=== PATIENT | female | born 1965 | race Caucasian/White ===

== ENCOUNTER 2017-09-25 20:53 | Inpatient (IN) ==
--- NOTE | 2017-09-25 21:14 | Emergency Department Note ---
Overdose - [facility] Narrative Medical decision making narrative: Patient was hypoxic on room air 88%. She is on 2 L nasal cannula and now has sats in the upper 90s. She has no previous requirement of oxygen. Lung exam shows rhonchi of left lower lobe. Otherwise, regular rhythm, abdomen soft and nontender. She was very drowsy on exam, slow speech, she currently denies suicidal ideation but does admit that she has been telling her family that she wanted to kill herself over the past week. She did intentionally take extra Xanax today in order to sleep. She denies any other injections or drug use today. She is also on gabapentin, Fioricet that could be contributing to her sedated state. We will need to check chest x-ray, basic blood work, tox screen and then will admit for further care and observation overnight, also continue oxygen due to new hypoxia. Patient will need a consult to behavioral health once admitted. [place] slip has been placed on the chart. Consult to has been placed. 22:49 patient's elevated white blood cell count, elevated lactic acid, elevated troponin 0.10. No active chest pain or shortness of breath. EKG shows normal sinus rhythm with no acute ST elevation or depression. There is a T-wave inversion in lead 3 that is new from previous EKG. Patient was given aspirin but did not start any heparin at this time. Urinalysis was negative for UTI, urine tox was positive for benzos and marijuana. Will admit for further care at this time. - Medical Records Medical records reviewed: Yes I reviewed the patient's medical records. - Lab Data Lab results reviewed: Yes I reviewed the patient's lab results. Result diagrams: 09/25/17 21:57 09/25/17 21:57 Lab Results 09/25/17 09/25/17 09/25/17 Range/Units 21:20 21:20 21:57 WBC 20.7 H (4.3-11.1) K/mcL RBC 4.12 (3.82-4.97) M/mcL Hgb 12.7 (11.5-15.4) g/dL Hct 40.7 (35.3-44.9) % MCV 98.8 (83.0-100.0) fL MCH 30.8 (28.0-33.3) pg MCHC 31.2 L (31.6-35.5) g/dL RDW 13.5 (11.5-14.5) % Plt Count 301 (140-400) K/mcL MPV 11.1 (9.4-12.4) fL Immature Gran % 0.7 (0-4) % Seg Neutrophils % 82.9 % Lymphocytes % 9.9 % Monocytes % 6.2 % Eosinophils % 0.1 % Basophils % 0.2 % Neutrophils # 17.1 H (1.6-8.9) K/mcL Lymphocytes # 2.1 (0.6-4.6) K/mcL Monocytes # 1.3 (0.0-1.3) K/mcL Eosinophils # 0.0 (0.0-0.6) K/mcL Basophils # 0.1 (0.0-0.2) K/mcL Sodium (136-145) mEq/L Potassium (3.5-5.1) mEq/L Chloride (98-107) mEq/L Carbon Dioxide (23-29) mEq/L BUN (6-20) mg/dL Creatinine (0.60-1.20) mg/dL Est GFR ( Amer) (> 60) Est GFR (Non-Af Amer) (> 60) BUN/Creatinine Ratio (6-26) Glucose (70-105) mg/dL Calculated Osmolality (280-300) Lactic Acid (0.5-2.2) mmol/L Calcium (8.6-10.3) mg/dL Troponin I (< 0.04) ng/mL B-Natriuretic Peptide (Less than 100) pg/mL Urine Color Yellow (Yellow) Urine Clarity Clear (Clear) Urine pH 5.5 (5.0-8.0) pH Units Ur Specific [place] 1.026 H (1.010-1.025) Urine Protein Trace (Neg-Trace) mg/dL Urine Glucose (UA) 250 H (Normal) mg/dL Urine Ketones Negative (Negative) mg/dL Urine Blood Negative (Negative) Urine Nitrite Negative (Negative) Urine Bilirubin Negative (Negative) Urine Urobilinogen Normal (Normal) mg/dL Ur Leukocyte Esterase Negative (Negative) Urine Microscopic RBC 0-3 (0-3) per hpf Urine Microscopic WBC 0-3 (0-3) per hpf Ur Squamous Epith Cells Many H (None-Few) per lpf Urine Bacteria None Seen (None-Few) per hpf Hyaline Casts None Seen (None-Few) per lpf Salicylates (15.0-30.0) mg/dL Urine Opiates Screen Negative (Swdfcw=019) ng/mL Acetaminophen (10-20) mcg/mL Ur Barbiturates Screen Negative (Haydss=844) ng/mL Ur Phencyclidine Scrn Negative (Cutoff=25) ng/mL Ur Amphetamines Screen Negative (Qgkchj=1022) ng/mL U Benzodiazepines Scrn Positive H (Dqsgrn=828) ng/mL Urine Cocaine Screen Negative (Cutoff= 300) ng/mL U Marijuana (THC) Screen Positive H (Cutoff = 50) ng/mL Ethyl Alcohol (Less than 10) mg/dL 09/25/17 09/25/17 09/25/17 Range/Units 21:57 21:57 21:57 WBC (4.3-11.1) K/mcL RBC (3.82-4.97) M/mcL Hgb (11.5-15.4) g/dL Hct (35.3-44.9) % MCV (83.0-100.0) fL MCH (28.0-33.3) pg MCHC (31.6-35.5) g/dL RDW (11.5-14.5) % Plt Count (140-400) K/mcL MPV (9.4-12.4) fL Immature Gran % (0-4) % Seg Neutrophils % % Lymphocytes % % Monocytes % % Eosinophils % % Basophils % % Neutrophils # (1.6-8.9) K/mcL Lymphocytes # (0.6-4.6) K/mcL Monocytes # (0.0-1.3) K/mcL Eosinophils # (0.0-0.6) K/mcL Basophils # (0.0-0.2) K/mcL Sodium 138 (136-145) mEq/L Potassium 3.9 (3.5-5.1) mEq/L Chloride 104 (98-107) mEq/L Carbon Dioxide 24 (23-29) mEq/L BUN 11 (6-20) mg/dL Creatinine 0.69 (0.60-1.20) mg/dL Est GFR ( Amer) > 60 (> 60) Est GFR (Non-Af Amer) > 60 (> 60) BUN/Creatinine Ratio 16 (6-26) Glucose 90 (70-105) mg/dL Calculated Osmolality 285 (280-300) Lactic Acid 3.0 H (0.5-2.2) mmol/L Calcium 9.2 (8.6-10.3) mg/dL Troponin I 0.10 H* (< 0.04) ng/mL B-Natriuretic Peptide 16 (Less than 100) pg/mL Urine Color (Yellow) Urine Clarity (Clear) Urine pH (5.0-8.0) pH Units Ur Specific [place] (1.010-1.025) Urine Protein (Neg-Trace) mg/dL Urine Glucose (UA) (Normal) mg/dL Urine Ketones (Negative) mg/dL Urine Blood (Negative) Urine Nitrite (Negative) Urine Bilirubin (Negative) Urine Urobilinogen (Normal) mg/dL Ur Leukocyte Esterase (Negative) Urine Microscopic RBC (0-3) per hpf Urine Microscopic WBC (0-3) per hpf Ur Squamous Epith Cells (None-Few) per lpf Urine Bacteria (None-Few) per hpf Hyaline Casts (None-Few) per lpf Salicylates < 2.5 L (15.0-30.0) mg/dL Urine Opiates Screen (Ohahdw=134) ng/mL Acetaminophen < 10 L (10-20) mcg/mL Ur Barbiturates Screen (Uvjtfo=787) ng/mL Ur Phencyclidine Scrn (Cutoff=25) ng/mL Ur Amphetamines Screen (Fvbtef=1288) ng/mL U Benzodiazepines Scrn (Qlrsok=954) ng/mL Urine Cocaine Screen (Cutoff= 300) ng/mL U Marijuana (THC) Screen (Cutoff = 50) ng/mL Ethyl Alcohol < 10 (Less than 10) mg/dL - Radiology Data Radiology results reviewed: Yes I reviewed the patient's radiology results. - EKG Data EKG attestation: Yes I reviewed and interpreted this EKG. EKG results narrative: 09/25/2017 at 21:29. Normal sinus rhythm. Rate 85. CA 157. QRS 11. QTC 427. Normal axis. No acute ST elevation or depression. T wave inversion in lead 3 that is new from previous EKG. Overdose HPI - General Chief Complaint: ED Overdose Stated Complaint: SI/Poss OD/AMS Time Seen by Provider: 09/25/17 21:14 Source: family Mode of arrival: ambulatory Limitations: altered mental status Nursing Notes Reviewed: Yes Vital Signs Reviewed: Yes - History of Present Illness HPI Narrative: Patient is a 52-year-old female with past medical history of anxiety, depression , marijuana abuse, previous drug abuse, chronic low back pain and chronic leg pain. She presents today due to undetermined intent of overdose. She has told family members that for the past week that she wanted to kill herself and no longer wanted to be in this world. Today, the patient says that she took extra Xanax. She said that she just wanted to sleep. She was unclear as to whether or not this was intended to result in her . She currently denies any suicidal ideation or homicidal ideation, visual or auditory hallucinations. She was apparently found by her significant other slumped over in a room home, had vomited coming out of her nose and out of her mouth. The patient was hypoxic on presentation and denies that she has ever been on any oxygen in the past. - Related Data Home Medications Medication Instructions Recorded Confirmed ALPRAZolam [Xanax 0.5 MG Tablet] 0.5 mg PO TID PRN 09/25/17 09/25/17 Atorvastatin Calcium [Lipitor] 20 mg PO HS 09/25/17 09/25/17 Escitalopram [Lexapro] 20 mg PO DAILY 09/25/17 09/25/17 Gabapentin [Neurontin] 300 mg PO TID 09/25/17 09/25/17 Ipratropium/Albuterol Sulfate 1 puff IH DAILY 09/25/17 09/25/17 [Combivent Respimat Inhal [place]] Pantoprazole Sodium [Protonix] 40 mg PO BID 09/25/17 09/25/17 Allergies Allergy/AdvReac Type Severity Reaction Status Date / Time morphine Allergy See Verified 09/25/17 21:57 Comments All systems ED: reviewed and negative except as stated. Constitutional: Denies: fever Cardiovascular: Denies: chest pain Respiratory: Denies: cough, dyspnea Gastrointestinal: Denies: abdominal pain, nausea, vomiting, diarrhea Genitourinary: Denies: urgency, dysuria, frequency Psychiatric: Reports: anxiety, depression, suicidal thoughts. Denies: homicidal thoughts, auditory hallucinations, visual hallucinations Past Medical History - Past Medical History Attestation: Yes The following information was validated with the patient. Source: patient Medical history: Reports: hypertension - Social History Smoking Status: Current every day smoker Smokeless Tobacco Status: No Alcohol use: Reports: none Drug use: Reports: none Physical Exam - General Limitations: altered mental status General appearance: alert, in no apparent distress - Head Head exam: atraumatic, normocephalic, normal inspection - Eye Eye exam: Present: normal appearance, PERRL, EOMI - ENT ENT exam: normal exam, normal oropharynx, mucous membranes moist - Neck Neck exam: Present: normal inspection, full ROM, trachea midline - Chest Chest inspection: Present: normal inspection, symmetric chest wall rise - Respiratory Respiratory exam: Present: other (Rhonchi of left lower lobe) - Cardiovascular Cardiovascular exam: Present: regular rate, normal rhythm, normal heart sounds - Abdominal Exam Abdominal exam: Present: soft, Non-Tender. Absent: tenderness, distention, guarding, rebound, rigidity - Extremities Exam Extremities exam: Present: normal inspection, full ROM. Absent: tenderness, pedal edema - Neurological Exam Neurological exam: Present: alert, oriented X3, CN II-XII intact. Absent: motor sensory deficit - Psychiatric Psychiatric exam: Present: normal affect, normal mood - Skin Skin exam: Present: warm, dry, intact, normal color Course Course Narrative: Patient was hypoxic on room air 88%. She is on 2 L nasal cannula and now has sats in the upper 90s. She has no previous requirement of oxygen. Lung exam shows rhonchi of left lower lobe. Otherwise, regular rhythm, abdomen soft and nontender. She was very drowsy on exam, slow speech, she currently denies suicidal ideation but does admit that she has been telling her family that she wanted to kill herself over the past week. She did intentionally take extra Xanax today in order to sleep. She denies any other injections or drug use today. She is also on gabapentin, Fioricet that could be contributing to her sedated state. We will need to check chest x-ray, basic blood work, tox screen and then will admit for further care and observation overnight, also continue oxygen due to new hypoxia. Patient will need a consult to behavioral health once admitted. [place] slip has been placed on the chart. Consult to 1A has been placed. 22:49 patient's elevated white blood cell count, elevated lactic acid, elevated troponin 0.10. No active chest pain or shortness of breath. EKG shows normal sinus rhythm with no acute ST elevation or depression. There is a T-wave inversion in lead 3 that is new from previous EKG. Patient was given aspirin but did not start any heparin at this time. Urinalysis was negative for UTI, urine tox was positive for benzos and marijuana. Will admit for further care at this time. Vital Signs Temperature 97.8 F 09/25/17 20:55 Pulse Rate 88 09/25/17 20:55 Respiratory Rate 16 09/25/17 20:55 Blood Pressure 118/84 09/25/17 20:55 O2 Sat by Pulse Oximetry 93 09/25/17 20:55 Temperature 98.1 F 09/26/17 03:08 Pulse Rate 70 09/26/17 03:08 Respiratory Rate 16 09/26/17 03:08 Blood Pressure 102/64 09/26/17 03:08 O2 Sat by Pulse Oximetry 94 09/26/17 03:08 Oxygen Delivery Oxygen Delivery Room Air Critical Care Time Critical Care Time: Yes Total Critical Care Time: 35 Attestation: Altered mental status, overdose w/ hypoxia, and Non STEMI Disposition Clinical Impression: Anxiety, Hypoxia, Elevated troponin, Elevated lactic acid level Overdose of benzodiazepine Qualifiers: Encounter type: initial encounter Injury intent: undetermined intent Qualified Code(s): T42.4X4A - Poisoning by benzodiazepines, undetermined, initial encounter Depression Qualifiers: Depression Type: unspecified Qualified Code(s): F32.9 - Major depressive disorder, single episode, unspecified Leukocytosis Qualifiers: Leukocytosis type: unspecified Qualified Code(s): D72.829 - Elevated white blood cell count, unspecified Disposition: Admitted As Inpatient Condition: Good Time of Disposition: 22:19 S.B.A.R. - S.B.A.R. Situation: Demographics, MOA Background: Presenting Complaint, Relevant PMH, Meds, & Allergies Assessment: Vital Signs, Course and respsone to treatment, Exam Concerns, Patient/Family Expectation, Pertinant Lab Results, Outstanding Labs Recommendation: Barrier(s) to disposition, Recommendation based on pending studies, treatments, or consults S.B.A.R. Report Given to: Dr. Arvizu SEligio Repor Time: 23:03 Attestation Statement - Attestation Attestation: DR Branch note: Pt seen in conjunction w/ resident Dr Keith; Please see his chart for complete documentation; I spent face to face time w/ the patient and agree w/ the pt's treatment and disposition; patient arrives altered and hypoxic from home. She admits to taking one more Xanax than she should have taken. She maintained his saturations on nasal cannula in the ER. Becomes more awake during her ER stay. Denies being homicidal or suicidal. No chest pain at the time of admission but does admit to intermittent chest tightness and did have some vague chest tightness earlier in the day. Catheterization years ago but does not recall any since being placed. Admitted in stable and improved condition. No indication for thrombolytics or emergent cardiac intervention at this time.
[2017-09-25 21:59] LABS: Bilirubin,Urine Negative (Negative); Blood,Urine Negative (Negative); Clarity,Urine Clear (Clear); Color,Urine Yellow (Yellow); Glucose,Urine (UA) 250 mg/dL (Normal); Ketones,Urine Negative (Negative); Leukocyte Esterase,Urine Negative (Negative); Nitrite,Urine Negative (Negative); PH,Urine 5.5 pH Units (5.0-8.0); Protein,Urine Trace mg/dL (Neg-Trace); Specific Gravity,Urine 1.026 (1.010-1.025); Urobilinogen,Urine Normal (Normal)
[2017-09-25 22:01] LABS: Bacteria,Urine None Seen per hpf (None-Few); Hyaline Casts,Urine None Seen per lpf (None-Few); RBC,Urine 0-3 per hpf (0-3); Squamous Epithelial Cell,Urine Many per lpf (None-Few); WBC,Urine 0-3 per hpf (0-3)
[2017-09-25 22:13] LABS: Basophils # 0.1 K/mcL (0.0-0.2); Basophils % 0.2 %; Eosinophils % 0.1 %; Hematocrit 40.7 % (35.3-44.9); Hemoglobin 12.7 g/dL (11.5-15.4); Immature Granulocytes % 0.7 % (0-4); Lymphocytes # 2.1 K/mcL (0.6-4.6); Lymphocytes % 9.9 %; Mean Corpuscular HGB Conc 31.2 g/dL (31.6-35.5); Mean Corpuscular Hemoglobin 30.8 pg (28.0-33.3); Mean Corpuscular Volume 98.8 fL (83.0-100.0); Mean Platelet Volume 11.1 fL (9.4-12.4); Monocytes # 1.3 K/mcL (0.0-1.3); Monocytes % 6.2 %; Neutrophils # 17.1 K/mcL (1.6-8.9); Platelet Count 301 K/mcL (140-400); Red Blood Count 4.12 M/mcL (3.82-4.97); Red Cell Distribution Width 13.5 % (11.5-14.5); Segmented Neutrophils % 82.9 %
[2017-09-25 22:13] LABS: Amphetamine Screen,Urine Negative ng/mL (Cutoff=1000); Barbiturate Screen,Urine Negative ng/mL (Cutoff=200); Benzodiazepines Screen,Urine Positive ng/mL (Cutoff=200); Cannabinoid Screen,Urine Positive ng/mL (Cutoff = 50); Cocaine Screen,Urine Negative ng/mL (Cutoff= 300); Opiate Screen,Urine Negative ng/mL (Cutoff=300); Phencyclidine Screen,Urine Negative ng/mL (Cutoff=25)
[2017-09-25 22:31] LABS: Acetaminophen < 10 mcg/mL (10-20)
[2017-09-25] MEDS ORDERED: 0.9 % Sodium Chloride 1,000 ML IVC ONE (22:31)
[2017-09-25 22:37] LABS: Salicylate < 2.5 mg/dL (15.0-30.0)
[2017-09-25 22:38] LABS: Calcium 9.2 mg/dL (8.6-10.3)
[2017-09-25 22:39] LABS: BUN/Creatinine Ratio 16 (6-26); Blood Urea Nitrogen 11 mg/dL (6-20); Carbon Dioxide 24 mEq/L (23-29); Chloride 104 mEq/L (98-107); Ethanol < 10 mg/dL (Less than 10); Glucose 90 mg/dL (70-105); Osmolality,Calculated 285 (280-300); Potassium 3.9 mEq/L (3.5-5.1); Sodium 138 mEq/L (136-145); eGFR For African Americans > 60 (> 60); eGFR For Non-African Americans > 60 (> 60)
[2017-09-25] MEDS ORDERED: Aspirin 325 MG TABLET PO ONE (23:02)
[2017-09-25] MEDS ORDERED: Naloxone 0.4 MG/ML INJ IVP PRN (23:19)
[2017-09-26] MEDS ORDERED: Naloxone 0.4 MG/ML INJ IVP PRN (00:47)
[2017-09-26] MEDS ORDERED: SUMAtriptan succinate 25 MG TABLET PO ONE (01:21)
--- NOTE | 2017-09-26 01:37 | Internal Med History&Physical ---
<Gwen Rios H - Last Filed: 09/26/17 02:22> Date of Encounter: 09/26/17 Time of Encounter: 01:31 Internal Medicine - H&P: HPI Chief complaint: altered mental status/overdose Admitted From: Emergency Dept Plans for Post Hospital Care: Transfer Psych Facility History of present illness: Ms. Yousif is a 52 year old female with PMHX HLD, HTN, anxiety, and depression who presented to [facility] on 09/25/2017 with chief complaint of altered mental status , possible drug overdose. Patient was accompanied by boyfriend who states he found her slumped over with vomit coming out of her nose and mouth. He states she has been making suicidal statements for the past several weeks. Patient was tearful stating that she has been in conflict with her son. She is adamant that she only took one extra dose of her prescribed xanax which she has been on for several years. Currently, Ms. Yousif is tearful and somnolent, while still alert and oriented times 3. She is expressing grief over many areas in her life. She denies shortness of breath, chest pain, palpitations, or diaphoresis. She denies diarrhea, dysuria or gross hematuria. She does report nausea and a headache. She describes her headache as throbbing and pulsatile and located in the region of her forehead bilaterally. She reports photophobia and associated nausea. In the ED, patient was found to have a CXR suggestive of hypoventilation, lactic acidosis, leukocytosis, and an elevated troponin. She was admitted to the hospital for further workup and care. Past Med Surg Social Fam HX - Past Medical History Attestation: Yes The following information was validated with the patient. Source: patient, old records reviewed Medical history: GERD, hyperlipidemia, hypertension Psychiatric history: anxiety, depression - Past Surgical History Surgical History: splenectomy - Social History Smoking Status: Current every day smoker Packs per day: 2 Smokeless Tobacco Status: No Alcohol use: none Drug use: marijuana - Family History Mother Living Status: Still Living Hx Family Cardiac Disorders: Yes Internal Medicine - H&P: Meds ALPRAZolam [Xanax 0.5 MG Tablet] 0.5 mg PO TID PRN 09/25/17 [History] Atorvastatin Calcium [Lipitor] 20 mg PO HS 09/25/17 [History] Escitalopram [Lexapro] 20 mg PO DAILY 09/25/17 [History] Gabapentin [Neurontin] 300 mg PO TID 09/25/17 [History] Ipratropium/Albuterol Sulfate [Combivent Respimat Inhal [place]] 1 puff IH DAILY 09/25/17 [History] Pantoprazole Sodium [Protonix] 40 mg PO BID 09/25/17 [History] 3 Allergy/AdvReac Type Severity Reaction Status Date / Time morphine Allergy See Verified 09/25/17 21:57 Comments All Systems PM: A 10-system review of systems was performed and is negative for pertinent findings except as documented above in the HPI. - Constitutional Constitutional: no chills, no fatigue, no fever(s), no weakness, no weight loss - EENT Eyes: photophobia, no change in vision Nose, mouth and throat: no nasal congestion, no nasal discharge - Cardiovascular Cardiovascular ROS IM: no chest pain, no claudication, no diaphoresis, no dyspnea, no dyspnea on exertion, no edema, no orthopnea, no palpitations, no paroxysmal nocturnal dyspnea - Respiratory Respiratory: no cough, no dyspnea, no chest congestion - Gastrointestinal Gastrointestinal: nausea, vomiting, no coffee ground emesis, no diarrhea, no hematemesis, no hematochezia, no loose stools, no melena - Musculoskeletal Musculoskeletal ROS IM: no numbness, no tingling - Integumentary Integumentary IM: no erythema, no rash, no unusual bruising, no jaundice - Neurological Neurological ROS: headache(s), no abnormal movements, no abnormal speech, no lack of coordination, no numbness, no paresthesias, no tremor(s) - Psychiatric Psychiatric: anxiety, depression - Constitutional Vitals: Temp Pulse Resp BP Pulse Ox 98.4 F 77 16 110/73 95 09/26/17 00:20 09/26/17 00:20 09/26/17 00:20 09/26/17 00:20 09/26/17 00:20 General appearance: Present: A&O X 3, answers questions appropriately Exam: mildly somnolent and tearful - Head Head exam: Present: atraumatic, normocephalic - Eye Eye exam: Present: EOMI, PERRL, conjuntiva pink, sclera anicteric Pupils: Present: PERRL - Neck Neck exam general surgery: Present: supple, trachea midline. Absent: lymphadenopathy, tenderness, nuchal rigidity - Respiratory Respiratory exam: Present: CTAB. Absent: accessory muscle use, rales, rhonchi, wheezes - Cardiovascular Cardiovascular exam: Present: RRR, +S1, +S2. Absent: diastolic murmur, gallop, rubs, systolic murmur - GI/Abdominal GI/Abdominal exam: Present: normal bowel sounds, soft, no peritoneal signs. Absent: distended, firm, guarding, tenderness Additional comments: midline abdominal scar - Extremities Exam Extremities exam: Present: warm, radial pulses palpable and symmetrical. Absent : calf tenderness, cyanotic, pedal edema - Neurological Exam Neurological exam: Present: CN II-XII intact, oriented X3, no focal deficits. Absent: pronater drift, facial droop, speech deficit - Psychiatric Psychiatric exam: Present: depressed (sad, sobbing) - Skin Skin exam: Present: dry, intact. Absent: rash Internal Med - H&P Results - Labs CBC & Chem 7: 09/25/17 21:57 09/25/17 21:57 - Assessment and plan (1) Encephalopathy Current Visit: Yes Status: Acute Assessment and plan: 52 yo female with PMHx of anxiety and depression with suspected OD of benzodiazepenes. -Patient with leukocytosis, elevated troponin, and lactic acidosis after being found stuporous with vomit coming out of her mouth and nose. Can not rule out seziure or other intracranial process. Infectious etiology unlikely as patient afebrile without nuchal rigidity or tenderness. -Will get CT of the head. -EEG in the morning. -Aspiration precautions, bedside swallow study (2) Aspiration pneumonitis Current Visit: Yes Status: Acute Assessment and plan: CXR with mild linear opacities. No infiltrates. Suspect aspiration pneumonitis. -Aspiration precautions -supplemental O2 PRN -continue to monitor clinically (3) Lactic acidosis Current Visit: Yes Status: Acute Assessment and plan: Trending downwards, will continue to monitor. (4) Leukocytosis Current Visit: Yes Status: Acute Assessment and plan: Will continue to monitor. Qualifiers: Leukocytosis type: unspecified Qualified Code(s): D72.829 - Elevated white blood cell count, unspecified (5) Elevated troponin Current Visit: Yes Status: Acute Assessment and plan: ECG with single lead T wave inversion. Suspect this is due to demand ischemia possibly secondary to stress reaction or potential postictal state. Will r/o ACS. -Will continue to trend troponins and ECGs. -ASA given in the ED. -Echocardiogram in the AM. (6) Migraine Current Visit: Yes Status: Acute Assessment and plan: Sumatriptan for migraine. Qualifiers: Migraine type: unspecified Status migrainosus presence: without status migrainosus Intractability: not intractable Qualified Code(s): G43.909 - Migraine, unspecified, not intractable, without status migrainosus - Time Spent With Patient Total time spent is greater than 50% in coordination of care (as documented) at patient's floor/unit and/or counseling patient: <Chuck Broderick - Last Filed: 09/26/17 03:29> Date of Encounter: 09/26/17 Internal Medicine - H&P: HPI History of present illness: Ms. Yousif is a 52 year old female All Systems PM: A 10-system review of systems was performed and is negative for pertinent findings except as documented above in the HPI. - Constitutional Vitals: Temp Pulse Resp BP Pulse Ox 98.1 F 70 16 102/64 94 09/26/17 03:08 09/26/17 03:08 09/26/17 03:08 09/26/17 03:08 09/26/17 03:08 Internal Med - H&P Results - Labs CBC & Chem 7: 09/25/17 21:57 09/25/17 21:57 Labs: Cardiac Enzymes 09/26/17 Range/Units 01:24 Troponin I 0.12 H* (< 0.04) ng/mL - Attending Attestation I have independently seen and examined this patient at the bedside. Her spouse is at the bedside at time of review. 2-year-old female with medical history of tobacco abuse, obesity, who was admitted to the ER following an episode of altered mental status. The patients reports she was unavailable all day, when he got home, she would not open the door and he had to break the window open for access. He found her passed out with vomitus all over her body and face. The patient is awake and reports she was tired of the stress from her family and just needed to sleep< hence she took extra pill of her Xanax. She is only complaining of frontal headaches at time of review with photophobia, she denies neck stiffness. She denies suicidal ideation On exam, she is awake but drowsy, alert and oriented X3, dry oral mucosa, CARLOS, neck is supple, CTAB, HS S1, S2 only, no m/g/r, abdomen is benign, no pedal edema. Work up in the ER revealed hypoxia, leukocytosis, lactic acidosis, elevated troponin , CXR with atelectasis, reviewed imaging, no infiltrates, urinalysis is unremarkable, Utox with BZP and THC. EKG is non-ischemic. Plan is as documented in the resident physicians notes: Admit to med/surg, repeat troponin, obtain ECHO, unlikely ACS, possible demand ischemia from hypoxia, suspect aspiration pneumonitis, no infiltrates on CXR and chest is CTAB, leukocytosis possibly from stress however, patient could have had a seizure. Repeat lactate after fluid hydration. Obtain CT scan, obtain EEG. Monitor closely. Psych eval as spouse reports patient has threatened suicide in the past week Rest as in resident physicians documentation - Assessment and plan (1) Leukocytosis Current Visit: Yes Status: Acute Qualifiers: Leukocytosis type: unspecified Qualified Code(s): D72.829 - Elevated white blood cell count, unspecified (2) Elevated troponin Current Visit: Yes Status: Acute (3) Encephalopathy Current Visit: Yes Status: Acute (4) Aspiration pneumonitis Current Visit: Yes Status: Acute (5) Lactic acidosis Current Visit: Yes Status: Acute (6) Migraine Current Visit: Yes Status: Acute Qualifiers: Migraine type: unspecified Status migrainosus presence: without status migrainosus Intractability: not intractable Qualified Code(s): G43.909 - Migraine, unspecified, not intractable, without status migrainosus - Time Spent With Patient Total time spent is greater than 50% in coordination of care (as documented) at patient's floor/unit and/or counseling patient:
[2017-09-26 07:32] LABS: Basophils # 0.1 K/mcL (0.0-0.2); Basophils % 0.5 %; Eosinophils # 0.2 K/mcL (0.0-0.6); Eosinophils % 1.7 %; Hematocrit 34.7 % (35.3-44.9); Immature Granulocytes % 0.3 % (0-4); Lymphocytes # 4.8 K/mcL (0.6-4.6); Lymphocytes % 43.6 %; Mean Corpuscular HGB Conc 31.7 g/dL (31.6-35.5); Mean Corpuscular Hemoglobin 30.7 pg (28.0-33.3); Mean Corpuscular Volume 96.9 fL (83.0-100.0); Mean Platelet Volume 11.3 fL (9.4-12.4); Monocytes # 0.9 K/mcL (0.0-1.3); Monocytes % 7.9 %; Platelet Count 325 K/mcL (140-400); Red Blood Count 3.58 M/mcL (3.82-4.97); Red Cell Distribution Width 13.5 % (11.5-14.5)
[2017-09-26 07:41] LABS: Alanine Aminotransferase 21 Units/L (7-52); Albumin 3.4 g/dL (3.5-5.7); Albumin/Globulin Ratio 1.2 (1.1-2.2); Alkaline Phosphatase 86 Units/L (34-104); Aspartate Amino Transferase 25 Units/L (13-39); BUN/Creatinine Ratio 16 (6-26); Bilirubin,Total 0.2 mg/dL (0.3-1.0); Blood Urea Nitrogen 8 mg/dL (6-20); Calcium 8.5 mg/dL (8.6-10.3); Carbon Dioxide 26 mEq/L (23-29); Chloride 106 mEq/L (98-107); Globulin 2.8 g/dL (2.4-3.5); Glucose 89 mg/dL (70-105); Magnesium 1.9 mg/dL (1.6-2.6); Osmolality,Calculated 284 (280-300); Phosphorous 3.7 mg/dL (2.7-4.5); Potassium 3.7 mEq/L (3.5-5.1); Sodium 138 mEq/L (136-145); Total Protein 6.2 g/dL (6.4-8.9); eGFR For African Americans > 60 (> 60); eGFR For Non-African Americans > 60 (> 60)
[2017-09-26] MEDS ORDERED: Ipratropium 1 PUFF INHALER IH SCH (09:00)
[2017-09-26] MEDS ORDERED: NON-FORMULARY MEDICATION 1 EACH EACH (Ipratropium/Albuterol Sulfate [Combivent Respimat In IH SCH (09:00)
[2017-09-26] MEDS: Ipratropium 1 PUFF INHALER IH SCH ×3 (10:07→22:24)
--- NOTE | 2017-09-26 14:00 | Internal Med Progress Note ---
<Nikky Paiz - Last Filed: 09/26/17 15:42> Date of Encounter: 09/26/17 Time of Encounter: 10:00 - Assessment and plan (1) Leukocytosis Current Visit: Yes Status: Acute Assessment and plan: -Improved. -Possibly a reactive leukocytosis secondary to bodily stress. -White count WNL today, previous white count 20.7. -Has been afebrile throughout her stay. -Continue to monitor. Qualifiers: Leukocytosis type: unspecified Qualified Code(s): D72.829 - Elevated white blood cell count, unspecified (2) Elevated troponin Current Visit: Yes Status: Acute Assessment and plan: -ECG with single lead T wave inversion. Suspect due to demand ischemia; possibly secondary to stress reaction or to potential postictal state. -Troponin trending down, 0.07 today. -Echocardiogram shows EF 60-65%, no wall motion abnormalities of LV, mild TR, no pulmonary HTN. -Patient will undergo nuclear and pharmacologic stress tests tomorrow morning. -Continue atorvastatin 20mg PO -Continue cardiac monitoring (3) Encephalopathy Current Visit: Yes Status: Acute Assessment and plan: -Possibly post-ictal state, EEG interpretation pending -Benzodiazepine overdose was initially suspected by admitting team. Patient's boyfriend reported she had been making suicidal statements for several weeks. Conflict with son has been significant stressor. -Infectious etiology less likely as patient afebrile without nuchal rigidity or tenderness. -CT head negative for acute intracranial abnormality -Metabolic panel unremarkable, doubt metabolic encephalopathy - (4) Aspiration pneumonitis Current Visit: Yes Status: Acute Assessment and plan: -Suspect aspiration pneumonitis as she was initially found slumped over with the vomit coming out of her nose and mouth. Aspiration pneumonia seems less likely given the there are no focal consolidations or infiltrates seen on chest x-ray, patient has been afebrile, white count has returned to normal limits. -CXR shows mild linear opacities, no focal consolidations. -Passed bedside swallow test -supplemental O2 PRN (5) Lactic acidosis Current Visit: Yes Status: Acute Assessment and plan: -Initial lactic acid level 3.0, most recent lactic acid level of 2.0 (6) Migraine Current Visit: Yes Status: Acute Assessment and plan: - PO tylenol PRN Qualifiers: Migraine type: unspecified Status migrainosus presence: without status migrainosus Intractability: not intractable Qualified Code(s): G43.909 - Migraine, unspecified, not intractable, without status migrainosus (7) Anxiety and depression Current Visit: Yes Status: Acute Assessment and plan: -Patient's significant other reported patient had been making suicidal statements for a few weeks -Stressors may include ongoing conflict between patient and her son. -Psychiatry consulted, recommendations appreciated -Continue patient's home dose of Xanax for the time being - Time Spent With Patient Total time spent is greater than 50% in coordination of care (as documented) at patient's floor/unit and/or counseling patient: - Subjective Interval history: Patient seen and examined at this morning at bedside. An pharmacy intake technician was also present in the room applying electrodes to the patient's scalp for an EEG. Patient is sleepy-appearing and her only complaint is headache. Denies fevers, chills, nausea, vomiting, chest pain, shortness of breath, abdominal pain, diarrhea, constipation, difficulty urinating. - Constitutional Vitals: Temp Pulse Resp BP Pulse Ox 98.1 F 61 16 94/61 94 09/26/17 10:59 09/26/17 10:59 09/26/17 10:59 09/26/17 10:59 09/26/17 10:59 General appearance: Present: A&O X 3, answers questions appropriately - Other Additional findings: General: sleepy, No acute distress, resting in bed HEENT: EOMI, head is non traumatic, normocephalic Neck: Supple, trachea midline Cardio: RRR, no murmurs, S1/S2+ Pulm: CTAB, no wheezing, Normal respiratory effort. Abdomen: soft, nontender, BS+ Extremities: No lower extremitiy edema, no calf tenderness, no cyanosis, clubbing Neuro: no focal neurological defecit, moves all extremities spontaneously MSK: No deformities Psych: flat affect, Answers questions appropriately. Cooperative with exam Internal Medicine: Result - Labs CBC & Chem 7: 09/26/17 07:06 09/26/17 07:06 Labs: Short CBC 09/26/17 Range/Units 07:06 WBC 11.0 (4.3-11.1) K/mcL Hgb 11.0 L D (11.5-15.4) g/dL Hct 34.7 L (35.3-44.9) % Plt Count 325 (140-400) K/mcL Neutrophils # 5.0 (1.6-8.9) K/mcL BMP 09/26/17 07:06 Sodium 138 Potassium 3.7 Chloride 106 Carbon Dioxide 26 BUN 8 Creatinine 0.51 L Glucose 89 Calcium 8.5 L Cardiac Enzymes 09/26/17 09/26/17 Range/Units 01:24 07:06 Troponin I 0.12 H* 0.07 H* (< 0.04) ng/mL Liver Function 09/26/17 Range/Units 07:06 Total Bilirubin 0.2 L (0.3-1.0) mg/dL AST 25 (13-39) Units/L ALT 21 (7-52) Units/L Alkaline Phosphatase 86 (34-104) Units/L Albumin 3.4 L (3.5-5.7) g/dL - Impressions Impressions Head CT 09/26/17 00:56 IMPRESSION: No acute intracranial abnormality. D/ / Shane Miles MD / Shane Miles MD Interpreting Provider: Shnae Miles MD Echocardiogram 09/26/17 01:22 Impressions: LVEF 60-65%. Indeterminate diastolic function. Normal right ventricular structure and function. Mild tricuspid regurgitation. No pulmonary hypertension. Left Ventricular Wall Motion: Rest Echo Findings All wall segments showed normal motion. Findings: Study Quality * Technically adequate exam. ECG Findings * Normal sinus rhythm. Left Ventricle * LVEF 60-65%. * Normal LV chamber size, wall thickness and function. * Indeterminate diastolic function. Right Ventricle * Normal right ventricular structure and function. Left Atrium * Normal left atrial size. Right Atrium * Normal right atrial size. Mitral Valve * Normal mitral valve structure. * No mitral stenosis. * Trace mitral regurgitation. Aortic Valve * No aortic regurgitation. * Trileaflet aortic valve. * No aortic stenosis. Tricuspid Valve * Mild tricuspid regurgitation. * Normal tricuspid valve structure. * Estimated RA pressure is 3 mmHg. * Estimated RVSP is 29 mmHg. * No pulmonary hypertension. Pulmonic Valve * Pulmonic valve is not well visualized. * No pulmonic stenosis. * No pulmonic regurgitation. Pulmonary Artery * Pulmonary artery not well visualized. Aorta * Normally sized aortic root. Pericardium * There is no pericardial effusion present. Interatrial Septum * No evidence of PFO by color Doppler. IVC * Normal IVC dimensions and inspiratory collapse. Consult Discharge Plan - Plan Referrals: NONE,PCP [Primary Care Provider] - <SandraJdvickicharlotte - Last Filed: 09/26/17 16:57> Date of Encounter: 09/26/17 - Assessment and plan (1) Leukocytosis Current Visit: Yes Status: Acute Qualifiers: Leukocytosis type: unspecified Qualified Code(s): D72.829 - Elevated white blood cell count, unspecified (2) Elevated troponin Current Visit: Yes Status: Acute (3) Encephalopathy Current Visit: Yes Status: Acute (4) Aspiration pneumonitis Current Visit: Yes Status: Acute (5) Lactic acidosis Current Visit: Yes Status: Acute (6) Migraine Current Visit: Yes Status: Acute Qualifiers: Migraine type: unspecified Status migrainosus presence: without status migrainosus Intractability: not intractable Qualified Code(s): G43.909 - Migraine, unspecified, not intractable, without status migrainosus (7) Anxiety and depression Current Visit: Yes Status: Acute - Time Spent With Patient Total time spent is greater than 50% in coordination of care (as documented) at patient's floor/unit and/or counseling patient: - Constitutional Vitals: Temp Pulse Resp BP Pulse Ox 98.1 F 61 16 94/61 94 09/26/17 10:59 09/26/17 10:59 09/26/17 16:09 09/26/17 10:59 09/26/17 16:09 Internal Medicine: Result - Labs CBC & Chem 7: 09/26/17 07:06 09/26/17 07:06 Labs: Short CBC 09/26/17 Range/Units 07:06 WBC 11.0 (4.3-11.1) K/mcL Hgb 11.0 L D (11.5-15.4) g/dL Hct 34.7 L (35.3-44.9) % Plt Count 325 (140-400) K/mcL Neutrophils # 5.0 (1.6-8.9) K/mcL BMP 09/26/17 07:06 Sodium 138 Potassium 3.7 Chloride 106 Carbon Dioxide 26 BUN 8 Creatinine 0.51 L Glucose 89 Calcium 8.5 L Cardiac Enzymes 09/26/17 09/26/17 09/26/17 Range/Units 01:24 07:06 12:59 Troponin I 0.12 H* 0.07 H* 0.06 H* (< 0.04) ng/mL Liver Function 09/26/17 Range/Units 07:06 Total Bilirubin 0.2 L (0.3-1.0) mg/dL AST 25 (13-39) Units/L ALT 21 (7-52) Units/L Alkaline Phosphatase 86 (34-104) Units/L Albumin 3.4 L (3.5-5.7) g/dL - Impressions Impressions Head CT 09/26/17 00:56 IMPRESSION: No acute intracranial abnormality. D/ / Shane Miles MD / Shane Miles MD Interpreting Provider: Shane Miles MD Echocardiogram 09/26/17 01:22 Impressions: LVEF 60-65%. Indeterminate diastolic function. Normal right ventricular structure and function. Mild tricuspid regurgitation. No pulmonary hypertension. Left Ventricular Wall Motion: Rest Echo Findings All wall segments showed normal motion. Findings: Study Quality * Technically adequate exam. ECG Findings * Normal sinus rhythm. Left Ventricle * LVEF 60-65%. * Normal LV chamber size, wall thickness and function. * Indeterminate diastolic function. Right Ventricle * Normal right ventricular structure and function. Left Atrium * Normal left atrial size. Right Atrium * Normal right atrial size. Mitral Valve * Normal mitral valve structure. * No mitral stenosis. * Trace mitral regurgitation. Aortic Valve * No aortic regurgitation. * Trileaflet aortic valve. * No aortic stenosis. Tricuspid Valve * Mild tricuspid regurgitation. * Normal tricuspid valve structure. * Estimated RA pressure is 3 mmHg. * Estimated RVSP is 29 mmHg. * No pulmonary hypertension. Pulmonic Valve * Pulmonic valve is not well visualized. * No pulmonic stenosis. * No pulmonic regurgitation. Pulmonary Artery * Pulmonary artery not well visualized. Aorta * Normally sized aortic root. Pericardium * There is no pericardial effusion present. Interatrial Septum * No evidence of PFO by color Doppler. IVC * Normal IVC dimensions and inspiratory collapse. - Attending Attestation I examined this patient and my medical decision-making was reviewed with the Resident Physician Dr. Paiz. I agree with the documented findings, disposition and treatment plan as described except to the extent set forth below. Ms. Yousif is a 52 year old female with PMHX HLD, HTN, anxiety, and depression who presented to [facility] on 09/25/2017 with chief complaint of altered mental status , possible drug overdose. Pt was hypoxic initially, she also c/o Chest pain y/ d. She denied any CP. She is A, A, O x 3. Denied any suicidal ideations Chest: CTA Heart: S1S2+ RRR No murmurs Abd: Soft, NT a/p 1. Acute BZD overdose 2. ?? Suicidal ideation Pysch consulted 3. Acute initial NSTEMI mostly demand ischemia with drug overdose and hypoxia however pt did c/o chest pain too so will get a nuclear stress test in AM since she is very high risk pt.
--- NOTE | 2017-09-26 15:24 | Electrocardiograph Report ---
[address] [place] [address] Test Date: 2017-09-25 Pat Name: Char Yousif Department: 102 Room: 2A22 Gender: F [employer] R[employer]: Marlin : 1965 Requested By: Landen Keith Order Number: [id number] Reading MD: Norma Neff Measurements Intervals [place] Rate: 85 P: 13 VT: 157 QRS: 12 QRSD: 101 T: 8 QT: 384 QTc: 427 Interpretive Statements SINUS RHYTHM Electronically Signed On 09-26-2017 15:22:26 EDT by Norma Neff
[2017-09-26] MEDS: *HR* Heparin 5,000 UNIT/ML VIAL SQ SCH (16:44)
[2017-09-27 04:12] LABS: Hematocrit 36.6 % (35.3-44.9); Hemoglobin 11.7 g/dL (11.5-15.4); Mean Corpuscular Volume 96.8 fL (83.0-100.0); Mean Platelet Volume 11.8 fL (9.4-12.4); Platelet Count 320 K/mcL (140-400); Red Blood Count 3.78 M/mcL (3.82-4.97); Red Cell Distribution Width 13.6 % (11.5-14.5)
[2017-09-27 04:31] LABS: BUN/Creatinine Ratio 13 (6-26); Blood Urea Nitrogen 7 mg/dL (6-20); Calcium 8.8 mg/dL (8.6-10.3); Carbon Dioxide 26 mEq/L (23-29); Chloride 105 mEq/L (98-107); Glucose 135 mg/dL (70-105); Osmolality,Calculated 288 (280-300); Potassium 3.6 mEq/L (3.5-5.1); Sodium 139 mEq/L (136-145); eGFR For African Americans > 60 (> 60); eGFR For Non-African Americans > 60 (> 60)
[2017-09-27] MEDS: Ipratropium 1 PUFF INHALER IH SCH ×4 (04:33→21:19)
[2017-09-27] MEDS: *HR* Heparin 5,000 UNIT/ML VIAL SQ SCH ×2 (05:13→18:22)
[2017-09-27] MEDS ORDERED: Regadenoson 0.4 MG/5 ML SYRINGE IVP ONE (06:09)
--- NOTE | 2017-09-27 07:47 | Internal Med Progress Note ---
<Nikky Paiz - Last Filed: 09/27/17 14:00> Date of Encounter: 09/27/17 Time of Encounter: 08:53 - Assessment and plan (1) Elevated troponin Current Visit: Yes Status: Acute Assessment and plan: -Suspect due to demand ischemia -EKG with single lead T wave inversion. -Continues trending down, 0.06 today. -Echocardiogram shows EF 60-65%, no wall motion abnormalities of LV, mild TR, no pulmonary HTN. -Continue atorvastatin 20mg PO -Continue cardiac monitoring -no further testing recommended, per cardiology (2) Aspiration pneumonitis Current Visit: Yes Status: Acute Assessment and plan: -Resolved -Breathing comfortably today, oxygen saturations have been 91-95% throughout her stay -supplemental O2 PRN (3) Anxiety and depression Current Visit: Yes Status: Chronic Assessment and plan: -Patient's significant other reported patient had been making suicidal statements for a few weeks -Stressors may include ongoing conflict between patient and her son. -Continue patient's home dose of Xanax for the time being -Continue patient's home dose Lexapro -Psychiatry consulted, recommendations appreciated (4) Leukocytosis Current Visit: Yes Status: Resolved Assessment and plan: -Resolved. -White count down trending, was 11 yesterday and is 8.4 today. Qualifiers: Leukocytosis type: unspecified Qualified Code(s): D72.829 - Elevated white blood cell count, unspecified (5) Lactic acidosis Current Visit: Yes Status: Resolved Assessment and plan: -Resolved. -Initial lactic acid level 3.0, f/u level of 2.0 yesterday (6) Migraine Current Visit: Yes Status: Resolved Assessment and plan: -No complaints of headache or migraine today -PO tylenol PRN Qualifiers: Migraine type: unspecified Status migrainosus presence: without status migrainosus Intractability: not intractable Qualified Code(s): G43.909 - Migraine, unspecified, not intractable, without status migrainosus (7) Acute encephalopathy Current Visit: Yes Status: Resolved Assessment and plan: Resolved. Most likely toxic encephalopathy from drug overdose. Psychiatry consulted, recommendations appreciated. EEG interpretation pending. - Time Spent With Patient Total time spent is greater than 50% in coordination of care (as documented) at patient's floor/unit and/or counseling patient: - Subjective Interval history: Patient seen and examined at this morning at bedside. Sitter is present in the room. Patient resting comfortably in bed, states she is feeling okay today. Patient has no complaints today and denies headache, fevers, chills, nausea, vomiting, chest pain, shortness of breath, abdominal pain, diarrhea, constipation, difficulty urinating. - Constitutional Vitals: Temp Pulse Resp BP Pulse Ox 98.5 F 69 17 144/85 91 09/27/17 07:29 09/27/17 07:29 09/27/17 07:29 09/27/17 07:29 09/27/17 07:29 General appearance: Present: A&O X 3, answers questions appropriately - Other Additional findings: General: AAOx3, No acute distress, resting comfortably in bed HEENT: PERRL/ EOMI, moist mucus membranes, non traumatic, normocephalic Neck: Supple, FROM Cardio: RRR, no murmurs, +S1/S2 Pulm: CTAB, no wheezing, normal respiratory effort. Abdomen: soft, nontender, BS+ Extremities: No lower extremitiy edema, no cyanosis or clubbing Back: Normal on inspection Neuro: AAOx3, no focal neurological defecit, CN II-XII intact grossly Psych: Answers questions appropriately. Cooperative with exam Internal Medicine: Result - Labs CBC & Chem 7: 09/27/17 03:34 09/27/17 03:34 Labs: Short CBC 09/27/17 Range/Units 03:34 WBC 8.4 (4.3-11.1) K/mcL Hgb 11.7 (11.5-15.4) g/dL Hct 36.6 (35.3-44.9) % Plt Count 320 (140-400) K/mcL BMP 09/27/17 03:34 Sodium 139 Potassium 3.6 Chloride 105 Carbon Dioxide 26 BUN 7 Creatinine 0.52 L Glucose 135 H Calcium 8.8 Cardiac Enzymes 09/26/17 09/26/17 Range/Units 07:06 12:59 Troponin I 0.07 H* 0.06 H* (< 0.04) ng/mL - Impressions Impressions Echocardiogram 09/26/17 01:22 Impressions: LVEF 60-65%. Indeterminate diastolic function. Normal right ventricular structure and function. Mild tricuspid regurgitation. No pulmonary hypertension. Left Ventricular Wall Motion: Rest Echo Findings All wall segments showed normal motion. Findings: Study Quality * Technically adequate exam. ECG Findings * Normal sinus rhythm. Left Ventricle * LVEF 60-65%. * Normal LV chamber size, wall thickness and function. * Indeterminate diastolic function. Right Ventricle * Normal right ventricular structure and function. Left Atrium * Normal left atrial size. Right Atrium * Normal right atrial size. Mitral Valve * Normal mitral valve structure. * No mitral stenosis. * Trace mitral regurgitation. Aortic Valve * No aortic regurgitation. * Trileaflet aortic valve. * No aortic stenosis. Tricuspid Valve * Mild tricuspid regurgitation. * Normal tricuspid valve structure. * Estimated RA pressure is 3 mmHg. * Estimated RVSP is 29 mmHg. * No pulmonary hypertension. Pulmonic Valve * Pulmonic valve is not well visualized. * No pulmonic stenosis. * No pulmonic regurgitation. Pulmonary Artery * Pulmonary artery not well visualized. Aorta * Normally sized aortic root. Pericardium * There is no pericardial effusion present. Interatrial Septum * No evidence of PFO by color Doppler. IVC * Normal IVC dimensions and inspiratory collapse. Consult Discharge Plan - Plan Referrals: NONE,PCP [Primary Care Provider] - <Sheila Flores - Last Filed: 09/27/17 15:28> Date of Encounter: 09/27/17 - Assessment and plan (1) Leukocytosis Current Visit: Yes Status: Resolved Qualifiers: Leukocytosis type: unspecified Qualified Code(s): D72.829 - Elevated white blood cell count, unspecified (2) Elevated troponin Current Visit: Yes Status: Acute (3) Aspiration pneumonitis Current Visit: Yes Status: Acute (4) Lactic acidosis Current Visit: Yes Status: Resolved (5) Migraine Current Visit: Yes Status: Resolved Qualifiers: Migraine type: unspecified Status migrainosus presence: without status migrainosus Intractability: not intractable Qualified Code(s): G43.909 - Migraine, unspecified, not intractable, without status migrainosus (6) Anxiety and depression Current Visit: Yes Status: Chronic (7) Acute encephalopathy Current Visit: Yes Status: Resolved - Time Spent With Patient Total time spent is greater than 50% in coordination of care (as documented) at patient's floor/unit and/or counseling patient: - Constitutional Vitals: Temp Pulse Resp BP Pulse Ox 98.7 F 75 16 121/71 92 04/21/18 11:21 09/27/17 11:21 09/27/17 11:21 09/27/17 11:21 09/27/17 11:21 Internal Medicine: Result - Labs CBC & Chem 7: 09/27/17 03:34 09/27/17 03:34 Labs: Short CBC 09/27/17 Range/Units 03:34 WBC 8.4 (4.3-11.1) K/mcL Hgb 11.7 (11.5-15.4) g/dL Hct 36.6 (35.3-44.9) % Plt Count 320 (140-400) K/mcL BMP 09/27/17 03:34 Sodium 139 Potassium 3.6 Chloride 105 Carbon Dioxide 26 BUN 7 Creatinine 0.52 L Glucose 135 H Calcium 8.8 - Attending Attestation I examined this patient and my medical decision-making was reviewed with the Resident Physician Dr. Paiz. I agree with the documented findings, disposition and treatment plan as described except to the extent set forth below. Ms. Yousif is a 52 year old female with PMHX HLD, HTN, anxiety, and depression who presented to [facility] on 09/25/2017 with chief complaint of altered mental status , possible drug overdose. Pt was hypoxic initially. She denied any CP. She is A , A, O x 3. Denied any suicidal ideations Chest: CTA Heart: S1S2+ RRR No murmurs Abd: Soft, NT a/p 1. Acute BZD overdose 2. ?? Suicidal ideation Pysch consulted 3. Acute initial NSTEMI mostly demand ischemia with drug overdose and hypoxia 2 D Echo -Preserved LVEF, no wall motion abnormality Card did not recommend Stress test
--- NOTE | 2017-09-27 13:37 | Cardiology Consult Note ---
Date of Encounter: 09/27/17 Time of Encounter: 13:00 Assessment and Plan (1) Elevated troponin Current Visit: Yes Status: Acute Elevated troponin , 0.10, 0.12, 0.07, 0.06. Suspect demand ischemia in the setting of overdose, hypoxia, aspiration pnuemonitis. TTE completed shows preserved LV function. No wma. EKG shows NSR with non-specific t wave changes. Patient denies CV symptoms. Denies chest pain. No further cardiac testing recommended at this time. Continue treatment of above. Discussion w patient/family: The assessment and plan as outlined above was discussed with the patient and/or family members who expressed understanding and agreement. All questions were answered. Thank you for involving us in the care of your patient. Please call with any questions. History of Present Illness Consult date: 09/27/17 Requesting physician: Nikky Paiz Consult reason: Elevated troponin Chief complaint: Unresponsive. History of present illness: Ms. Yousif is a 52 year old female with past medical history of HTN, tobacco use, and anxiety. She presented from home after she was found passed out with vomit coming out of her mouth. Per record family reported patient stated she wanted to kill herself. She is diagnosed with aspiration pneumonitis. Labratory work- up revealed elevated lactic acid, leukocytosis, and elevated troponin. Cardiology consulted for elevated troponin. She is now alert and oriented. She denies chest pain or SOB. Denies palpitations. Denies previous history of heart disease. Past Med Surg Social Fam HX - Past Medical History Medical history: hyperlipidemia, hypertension Psychiatric history: anxiety, depression - Past Surgical History Surgical History: splenectomy - Social History Smoking Status: Current every day smoker Packs per day: 2 Smokeless Tobacco Status: No Alcohol use: none Drug use: none - Family History Mother Living Status: Still Living Hx Family Cardiac Disorders: Yes (CA 40's) Medications and Allergies ALPRAZolam [Xanax 0.5 MG Tablet] 0.5 mg PO TID PRN 09/25/17 [History] Atorvastatin Calcium [Lipitor] 20 mg PO HS 09/25/17 [History] Escitalopram [Lexapro] 20 mg PO DAILY 09/25/17 [History] Gabapentin [Neurontin] 300 mg PO TID 09/25/17 [History] Ipratropium/Albuterol Sulfate [Combivent Respimat Inhal [place]] 1 puff IH DAILY 09/25/17 [History] Pantoprazole Sodium [Protonix] 40 mg PO BID 09/25/17 [History] 3 Allergy/AdvReac Type Severity Reaction Status Date / Time morphine Allergy See Verified 09/25/17 21:57 Comments All Systems Review: The remainder of the systems were reviewed and are negative Physical Examination Vital Signs, Last 4 Hours Temp Pulse Resp BP Pulse Ox 09/27/17 11:21 98.7 F 75 16 121/71 92 General: Conversant, No Apparent Distress HEENT: Atraumatic, Normocephaly, Mucus Membranes Moist Neck: No JVD, Normal carotid pulses Cardiac: Reg Rate and Rhythm, Normal S1 and S2, No Murmur Lungs: Normal Breath Sounds, No Wheeze, Rales, Rhonchi Neuro: Alert and responsive, No focal deficits noted Abdomen: Soft, Non-Tender Skin: No rashes noted on visualized skin Musculoskeletal: No Chest Wall Tenderness Extremities: No Clubbing, No Cyanosis, No Edema, Normal Pulses Results 09/27/17 03:34 09/27/17 03:34 Lab Results 09/26/17 09/27/17 09/27/17 12:59 03:34 03:34 WBC 8.4 Hgb 11.7 Hct 36.6 Plt Count 320 Sodium 139 Potassium 3.6 Chloride 105 Carbon Dioxide 26 BUN 7 Creatinine 0.52 L Glucose 135 H Calcium 8.8 Troponin I 0.06 H* - Imaging and Cardiology Echo: report reviewed - EKG Interpretation EKG results cardiology: personally reviewed Consult Discharge Plan - Plan Referrals: NONE,PCP [Primary Care Provider] -
[2017-09-27] MEDS: Acetaminophen 325 MG TABLET PO PRN ×2 (15:18→22:12)
--- NOTE | 2017-09-27 17:14 | Consult Note ---
Date of Encounter: 09/27/17 Time of Encounter: 16:45 Assessment & Recommendation (1) Overdose of benzodiazepine Current visit: Yes Status: Acute Qualifiers: Encounter type: initial encounter Injury intent: undetermined intent (2) Depression Current visit: Yes Status: Acute Qualifiers: Depression Type: major depressive disorder Major depression recurrence: recurrent Major depression episode severity: severe Qualified Code(s): F33.2 - Major depressive disorder, recurrent severe without psychotic features (3) Anxiety Current visit: Yes Status: Acute History of Present Illness Requesting Physician: Honey Arvizu MD History of present illness: Ms. Yousif is a 52 year old female, unemployed, lives by self with PMHX HLD, HTN, anxiety, and depression, admitted to medicine on account of altered mental status in a possible drug overdose. Psychiatry consulted for suicidal ideation and overdose on Benzoes. Patient seen at bedside in the presence of one on one staff. She was alert and oriented x3. She reported severe headache on presentation. Patient reported unintentionally taking 5 pills of her prescribed 0.5mg Xanax following a verbal conflict with her 21y/o son that triggered severe anxiety symptoms. She endorsed worsening depressive symptoms days prior to the incident but denied any thoughts to harm her self. She also denied past suicide attempt. Collateral information from family however stated patient has been making statement to harm herself weeks for the incident. She is currently on Lexapro 20mg daily prescribed by her PCP with suboptimal effect. She denied h/o inpatient hospitalization or follow up with a psychiatrist. She reported prior good effect of Wellbutrin which was d/c after her PCP [place] out of state. Patient continue to endorse depressive symptoms but denied any thoughts to harm her self. She admitted to marijuana use but denied recent or past use of other illicit drugs. On review of symptoms, patient denied other mood or psychotic symptoms including AH/VH/HI. MSE significant for depressed mood and constricted affect. Assessment and Recommendations: Even though patient is denying SI at present time, collateral information from family stated otherwise and she is currently living by herself. She remains a risk to self and will benefit from additional stabilization. Recommendations: Continue to manage on the medicine floor for transfer to A1 upon bed availability Start Wellbutrin SR 100mg daily Thanks for the consult CC: Honey Arvizu MD Past Med Surg Social Fam HX - Past Medical History Medical history: hyperlipidemia, hypertension - Past Psychiatric History Psychiatric history: Reports: anxiety, depression Past psychiatric history details: Denied - Past Surgical History Surgical History: splenectomy - Social History Smoking Status: Current every day smoker Smokeless Tobacco Status: No Alcohol use: none Drug use: none - Family History Mother Living Status: Still Living Hx Family Cardiac Disorders: Yes ([place] 40's) Medications & Allergies ALPRAZolam [Xanax 0.5 MG Tablet] 0.5 mg PO TID PRN 09/25/17 [History] Atorvastatin Calcium [Lipitor] 20 mg PO HS 09/25/17 [History] Escitalopram [Lexapro] 20 mg PO DAILY 09/25/17 [History] Gabapentin [Neurontin] 300 mg PO TID 09/25/17 [History] Ipratropium/Albuterol Sulfate [Combivent Respimat Inhal [place]] 1 puff IH DAILY 09/25/17 [History] Pantoprazole Sodium [Protonix] 40 mg PO BID 09/25/17 [History] 3 Allergy/AdvReac Type Severity Reaction Status Date / Time morphine Allergy See Verified 09/25/17 21:57 Comments Review of Systems Constitutional: Denies: fever, chills, weakness, weight change Eyes: Denies: eye pain, vision change Ears, Nose, Throat: Denies: ear pain, throat pain, dental pain, hearing loss, congestion Cardiovascular: Denies: chest pain, palpitations, dyspnea on exertion Respiratory: Denies: cough, dyspnea, wheezes Gastrointestinal: Denies: abdominal pain, nausea, vomiting, diarrhea, constipation Genitourinary female: Denies: urgency, dysuria, frequency, abnormal menses, dyspareunia Musculoskeletal: Denies: joint swelling, joint pain Integumentary: Denies: rash, lesions, pruritus Neurological: Denies: headache, weakness, numbness, memory loss Psychiatric: Reports: depression, suicidal ideation Endocrine: Denies: fatigue, heat or cold intolerance Hematologic/Lymphatic: Denies: easy bruising, lymphadenopathy Allergic/Immunologic: Denies: urticaria, itchy eyes Psychiatry Exam - Constitutional Vitals: Temp Pulse Resp BP Pulse Ox 98.2 F 64 16 115/73 93 09/27/17 16:41 09/27/17 16:41 09/27/17 16:41 09/27/17 16:41 09/27/17 16:41 Results - Labs Labs: Laboratory Last Values WBC 8.4 K/mcL (4.3-11.1) 09/27/17 03:34 RBC 3.78 M/mcL (3.82-4.97) L 09/27/17 03:34 Hgb 11.7 g/dL (11.5-15.4) 09/27/17 03:34 Hct 36.6 % (35.3-44.9) 09/27/17 03:34 MCV 96.8 fL (83.0-100.0) 09/27/17 03:34 MCH 31.0 pg (28.0-33.3) 09/27/17 03:34 MCHC 32.0 g/dL (31.6-35.5) 09/27/17 03:34 RDW 13.6 % (11.5-14.5) 09/27/17 03:34 Plt Count 320 K/mcL (140-400) 09/27/17 03:34 MPV 11.8 fL (9.4-12.4) 09/27/17 03:34 Immature Gran % 0.3 % (0-4) 09/26/17 07:06 Seg Neutrophils % 46.0 % 09/26/17 07:06 Lymphocytes % 43.6 % 09/26/17 07:06 Monocytes % 7.9 % 09/26/17 07:06 Eosinophils % 1.7 % 09/26/17 07:06 Basophils % 0.5 % 09/26/17 07:06 Neutrophils # 5.0 K/mcL (1.6-8.9) 09/26/17 07:06 Lymphocytes # 4.8 K/mcL (0.6-4.6) H 09/26/17 07:06 Monocytes # 0.9 K/mcL (0.0-1.3) 09/26/17 07:06 Eosinophils # 0.2 K/mcL (0.0-0.6) 09/26/17 07:06 Basophils # 0.1 K/mcL (0.0-0.2) 09/26/17 07:06 Sodium 139 mEq/L (136-145) 09/27/17 03:34 Potassium 3.6 mEq/L (3.5-5.1) 09/27/17 03:34 Chloride 105 mEq/L (98-107) 09/27/17 03:34 Carbon Dioxide 26 mEq/L (23-29) 09/27/17 03:34 BUN 7 mg/dL (6-20) 09/27/17 03:34 Creatinine 0.52 mg/dL (0.60-1.20) L 09/27/17 03:34 Est GFR ( Amer) > 60 (> 60) 09/27/17 03:34 Est GFR (Non-Af Amer) > 60 (> 60) 09/27/17 03:34 BUN/Creatinine Ratio 13 (6-26) 09/27/17 03:34 Glucose 135 mg/dL (70-105) H 09/27/17 03:34 Calculated Osmolality 288 (280-300) 09/27/17 03:34 Lactic Acid 2.0 mmol/L (0.5-2.2) 09/25/17 23:53 Calcium 8.8 mg/dL (8.6-10.3) 09/27/17 03:34 Phosphorus 3.7 mg/dL (2.7-4.5) 09/26/17 07:06 Magnesium 1.9 mg/dL (1.6-2.6) 09/26/17 07:06 Total Bilirubin 0.2 mg/dL (0.3-1.0) L 09/26/17 07:06 AST 25 Units/L (13-39) 09/26/17 07:06 ALT 21 Units/L (7-52) 09/26/17 07:06 Alkaline Phosphatase 86 Units/L (34-104) 09/26/17 07:06 Troponin I 0.06 ng/mL (< 0.04) H* 09/26/17 12:59 B-Natriuretic Peptide 16 pg/mL (Less than 100) 09/25/17 21:57 Serum Total Protein 6.2 g/dL (6.4-8.9) L 09/26/17 07:06 Albumin 3.4 g/dL (3.5-5.7) L 09/26/17 07:06 Globulin 2.8 g/dL (2.4-3.5) 09/26/17 07:06 Albumin/Globulin Ratio 1.2 (1.1-2.2) 09/26/17 07:06 Urine Color Yellow (Yellow) 09/25/17 21:20 Urine Clarity Clear (Clear) 09/25/17 21:20 Urine pH 5.5 pH Units (5.0-8.0) 09/25/17 21:[address] 1.026 (1.010-1.025) H 09/25/17 21:20 Urine Protein Trace mg/dL (Neg-Trace) 09/25/17 21:20 Urine Glucose (UA) 250 mg/dL (Normal) H 09/25/17 21:20 Urine Ketones Negative mg/dL (Negative) 09/25/17 21:20 Urine Blood Negative (Negative) 09/25/17 21:20 Urine Nitrite Negative (Negative) 09/25/17 21:20 Urine Bilirubin Negative (Negative) 09/25/17 21:20 Urine Urobilinogen Normal mg/dL (Normal) 09/25/17 21:20 Ur Leukocyte Esterase Negative (Negative) 09/25/17 21:20 Urine Microscopic RBC 0-3 per hpf (0-3) 09/25/17 21:20 Urine Microscopic WBC 0-3 per hpf (0-3) 09/25/17 21:20 Ur Squamous Epith Cells Many per lpf (None-Few) H 09/25/17 21:20 Urine Bacteria None Seen per hpf (None-Few) 09/25/17 21:20 Hyaline Casts None Seen per lpf (None-Few) 09/25/17 21:20 Salicylates < 2.5 mg/dL (15.0-30.0) L 09/25/17 21:57 Urine Opiates Screen Negative ng/mL (Ttxvpx=529) 09/25/17 21:20 Acetaminophen < 10 mcg/mL (10-20) L 09/25/17 21:57 Ur Barbiturates Screen Negative ng/mL (Jzqndi=093) 09/25/17 21:20 Ur Phencyclidine Scrn Negative ng/mL (Cutoff=25) 09/25/17 21:20 Ur Amphetamines Screen Negative ng/mL (Fcxbme=8928) 09/25/17 21:20 U Benzodiazepines Scrn Positive ng/mL (Lxqduv=362) H 09/25/17 21:20 Urine Cocaine Screen Negative ng/mL (Cutoff= 300) 09/25/17 21:20 U Marijuana (THC) Screen Positive ng/mL (Cutoff = 50) H 09/25/17 21:20 Ethyl Alcohol < 10 mg/dL (Less than 10) 09/25/17 21:57 Consult Discharge Plan - Plan Referrals: NONE,PCP [Primary Care Provider] - Capacity - Capacity Reason for capacity evaluation: Suicidal ideation and overdose on benzoes Details: n/n
[2017-09-27] MEDS: ALPRAZolam 0.5 MG TABLET PO PRN (19:49)
[2017-09-28] MEDS: Ipratropium 1 PUFF INHALER IH SCH ×4 (03:41→21:12)
[2017-09-28] MEDS: *HR* Heparin 5,000 UNIT/ML VIAL SQ SCH ×2 (06:02→16:17)
[2017-09-28] MEDS: BuPROPion SR (12 HR) 100 MG TABLET PO SCH (08:09)
[2017-09-28] MEDS: Acetaminophen 325 MG TABLET PO PRN ×3 (08:23→20:55)
[2017-09-28] MEDS: ALPRAZolam 0.5 MG TABLET PO PRN ×2 (08:23→18:16)
[2017-09-28] MEDS: *HR* OxyCODONE/APAP 5/325 TABLET PO PRN ×3 (09:58→22:29)
--- NOTE | 2017-09-28 10:58 | Internal Med Progress Note ---
<Nikky Paiz - Last Filed: 09/28/17 14:19> Date of Encounter: 09/28/17 Time of Encounter: 10:45 - Assessment and plan (1) Anxiety and depression Current Visit: Yes Status: Chronic Assessment and plan: -Psychiatry recommends transfer to , she's felt to still be a risk to self -Continue patient's home dose of Xanax and Lexapro -Start Wellbutrin SR 100mg daily, per psychiatry rec (2) Acute encephalopathy Current Visit: Yes Status: Resolved Assessment and plan: Resolved Most likely toxic encephalopathy from benzodiazepine overdose EEG interpretation pending Will follow psychiatry recommendation to start Wellbutrin SR 100mg daily Per psychiatry, she remains a risk to self and transfer to for additional stabilization is recommended Transferred to pending bed availability (3) Elevated troponin Current Visit: Yes Status: Acute Assessment and plan: -Suspect due to demand ischemia from possible aspiration and hypoxia as result of drug overdose -EKG with single lead T wave inversion. -Echocardiogram shows EF 60-65%, no wall motion abnormalities of LV, mild TR, no pulmonary HTN. -Continue atorvastatin 20mg PO -no further testing recommended, per cardiology (4) Aspiration pneumonitis Current Visit: Yes Status: Acute Assessment and plan: -Resolved -Breathing comfortably today, oxygen saturations have been 91-95% throughout her stay -supplemental O2 PRN (5) Leukocytosis Current Visit: Yes Status: Resolved Assessment and plan: -Resolved -White count was WNL yesterday -Not concerned for infection--no infectious source, afebrile, no tachycardia, blood pressures stable Qualifiers: Leukocytosis type: unspecified Qualified Code(s): D72.829 - Elevated white blood cell count, unspecified (6) Lactic acidosis Current Visit: Yes Status: Resolved Assessment and plan: -Resolved. (7) Migraine Current Visit: Yes Status: Resolved Assessment and plan: -No complaints of headache or migraine today -PO tylenol PRN Qualifiers: Migraine type: unspecified Status migrainosus presence: without status migrainosus Intractability: not intractable Qualified Code(s): G43.909 - Migraine, unspecified, not intractable, without status migrainosus (8) DVT prophylaxis Current Visit: Yes Status: Acute Assessment and plan: Heparin 5,000 units SQ Q12H - Time Spent With Patient Total time spent is greater than 50% in coordination of care (as documented) at patient's floor/unit and/or counseling patient: - Subjective Interval history: Patient seen and examined at this morning at bedside. Sitter is present in the room. Patient resting in bed and states she feels ok today, but soon became tearful. Patient c/o lower back and abdominal pain today characterized as sharp ; admits nausea. Denies headache, fevers, chills, vomiting, chest pain, shortness of breath, abdominal cramping, diarrhea, constipation, dysuria, hematuria. . - Constitutional Vitals: Temp Pulse Resp BP Pulse Ox 97.7 F 62 18 122/76 95 09/28/17 10:45 09/28/17 10:45 09/28/17 10:45 09/28/17 10:45 09/28/17 10:45 General appearance: Present: A&O X 3, answers questions appropriately - Other Additional findings: General: No acute distress on entering room, resting comfortably in bed HEENT: PERRL/ EOMI, moist mucus membranes, atraumatic, normocephalic Neck: Supple, FROM Cardio: RRR, no murmurs, S1/S2 Pulm: CTAB, no wheezing, good airflow bilaterally, Normal respiratory effort. Abdomen: soft, BS+, generalized tenderness to palpation, no rebound, rigidity, guarding, distention Back: normal-appearing, , tender on spinous processes of lumbar spine, no erythema, bruising, or deformity Neuro: Alert and oriented, no focal neurological deficit, no speech deficit, CN II-XII intact grossly MSK: tenderness on palpation but no paraspinal muscle hypertonicity of lumbar spine, spontaneously moves extremities Psych: constricted affect, tearful, Answers questions appropriately. Cooperative with exam Internal Medicine: Result - Labs CBC & Chem 7: 09/27/17 03:34 09/27/17 03:34 Consult Discharge Plan - Plan Referrals: NONE,PCP [Primary Care Provider] - <Sheila Flores - Last Filed: 09/29/17 07:45> Date of Encounter: 09/28/17 - Assessment and plan (1) Leukocytosis Current Visit: Yes Status: Resolved Qualifiers: Leukocytosis type: unspecified Qualified Code(s): D72.829 - Elevated white blood cell count, unspecified (2) Elevated troponin Current Visit: Yes Status: Acute (3) Aspiration pneumonitis Current Visit: Yes Status: Acute (4) Lactic acidosis Current Visit: Yes Status: Resolved (5) Migraine Current Visit: Yes Status: Resolved Qualifiers: Migraine type: unspecified Status migrainosus presence: without status migrainosus Intractability: not intractable Qualified Code(s): G43.909 - Migraine, unspecified, not intractable, without status migrainosus (6) Anxiety and depression Current Visit: Yes Status: Chronic (7) Acute encephalopathy Current Visit: Yes Status: Resolved (8) DVT prophylaxis Current Visit: Yes Status: Acute - Time Spent With Patient Total time spent is greater than 50% in coordination of care (as documented) at patient's floor/unit and/or counseling patient: - Constitutional Vitals: Temp Pulse Resp BP Pulse Ox 98.1 F 70 16 91/56 92 09/29/17 07:35 09/29/17 07:35 09/29/17 07:35 09/29/17 07:35 09/29/17 07:35 Internal Medicine: Result - Labs CBC & Chem 7: 09/27/17 03:34 09/27/17 03:34 - Attending Attestation I examined this patient and my medical decision-making was reviewed with the Resident Physician Dr. Paiz. I agree with the documented findings, disposition and treatment plan as described except to the extent set forth below. Ms. Yousif is a 52 year old female with PMHX HLD, HTN, anxiety, and depression who presented to [facility] on 09/25/2017 with chief complaint of altered mental status , possible drug overdose. Pt was hypoxic initially. She denied any CP. She is A , A, O x 3. Denied any suicidal ideations Chest: CTA Heart: S1S2+ RRR No murmurs Abd: Soft, NT a/p 1. Acute BZD overdose 2. Suicidal ideation 3. Major depression Yadira evaluated the pt and recommend in patient psych admission on Friday 3. Acute initial NSTEMI mostly demand ischemia with drug overdose and hypoxia 2 D Echo -Preserved LVEF, no wall motion abnormality Card did not recommend Stress test Medically stable to d/c to 1A
[2017-09-28] MEDS: Ondansetron 4 MG/2 ML VIAL IVP PRN (18:16)
[2017-09-29] MEDS: Ipratropium 1 PUFF INHALER IH SCH ×4 (03:47→21:00)
[2017-09-29] MEDS: *HR* OxyCODONE/APAP 5/325 TABLET PO PRN (04:11)
[2017-09-29] MEDS: *HR* Heparin 5,000 UNIT/ML VIAL SQ SCH ×2 (06:14→16:21)
[2017-09-29] MEDS: BuPROPion SR (12 HR) 100 MG TABLET PO SCH (07:26)
[2017-09-29] MEDS: ALPRAZolam 0.5 MG TABLET PO PRN ×3 (09:05→21:21)
--- NOTE | 2017-09-29 10:10 | Discharge Summary ---
<Nikky Paiz - Last Filed: 09/29/17 18:23> Orders not resulted at time of discharge: Pending orders 09/26/17 06:00 ECG 12 lead ECG [ECG] AM 0600 Date of Encounter: 09/29/17 Time of Encounter: 09:30 - Discharge Diagnosis (1) Overdose of benzodiazepine Priority: Primary Status: Acute Qualifiers: Encounter type: initial encounter Injury intent: undetermined intent Qualified Code(s): T42.4X4A - Poisoning by benzodiazepines, undetermined, initial encounter (2) Anxiety and depression Priority: Secondary Status: Chronic (3) Acute encephalopathy Priority: Secondary Status: Resolved (4) Elevated troponin Priority: Secondary Status: Resolved (5) Aspiration pneumonitis Priority: Secondary Status: Resolved (6) Leukocytosis Priority: Secondary Status: Resolved Qualifiers: Leukocytosis type: unspecified Qualified Code(s): D72.829 - Elevated white blood cell count, unspecified (7) Lactic acidosis Priority: Secondary Status: Resolved (8) Migraine Priority: Secondary Status: Resolved Qualifiers: Migraine type: unspecified Status migrainosus presence: without status migrainosus Intractability: not intractable Qualified Code(s): G43.909 - Migraine, unspecified, not intractable, without status migrainosus (9) DVT prophylaxis Priority: Secondary Status: Acute Hospital course: Ms. Yousif is a 52 year old female with a past medical history of anxiety, depression, marijuana abuse, previous drug abuse presented to the emergency department due to possible medication overdose. She has reportedly told family members for the past week that she wanted to hurt herself no longer wanted to "be in this world." Patient reported that she took extra Xanax and that she just wanted to sleep. At time of presentation to emergency room, she is denying any suicidal ideation or homicidal ideation as well as hallucinations. She was apparently found by her significant other slumped over at home and having vomited. Vital signs in the emergency department significant for reported hypoxia at 88% which did improve with 2 L of oxygen. Laboratory results were significant for a WBC of 20.7, troponin of 0.10, and a urine drug screen which was positive for benzodiazepines and marijuana. CT of the head was negative and chest x-ray are unremarkable. She was admitted to medicine service for further evaluation and management of toxic encephalopathy secondary to medication overdose, lactic acidosis, elevated troponin. During course of hospital stay, patient did gradually improve. Her hypoxia did resolve without treatment. Psychiatry consult was placed in the emergency room. Patient did continue to deny intentions of self-harm, however after being evaluated by psychiatry they feel that admission to psychiatric unit would be beneficial given conflicting collateral information from family.Echocardiogram was also ordered and unremarkable for her elevated troponin, cardiology was consulted and not feel the need for further testing and this is likely secondary to hypoxia and increased demand. WBC was trended and is now back to baseline levels. Lactic acidosis which was originally 3.0 was trended to 2.0 and is within normal limits. On day of discharge, patient is medically stable and is agreeable for a psychiatric admission at this time. All questions were answered. - Time Spent with Patient Total time spent providing and/or coordinating discharge services: - Discharge Medications Home Medications: ALPRAZolam [Xanax 0.5 MG Tablet] 0.5 mg PO TID PRN 09/25/17 [History] Atorvastatin Calcium [Lipitor] 20 mg PO HS 09/25/17 [History] Escitalopram [Lexapro] 20 mg PO DAILY 09/25/17 [History] Gabapentin [Neurontin] 300 mg PO TID 09/25/17 [History] Ipratropium/Albuterol Sulfate [Combivent Respimat Inhal [place]] 1 puff IH DAILY 09/25/17 [History] Pantoprazole Sodium [Protonix] 40 mg PO BID 09/25/17 [History] Allergies/Adverse Reactions: 3 Allergy/AdvReac Type Severity Reaction Status Date / Time morphine Allergy See Verified 09/25/17 21:57 Comments Date of admission: 09/25/17 23:41 Primary care physician: PCP NONE Consults: 09/26/17 11:37 Consult to Interpret Exam [CONS] Routine Consulting Provider: Kathy Meyer I Consult to Interpret Exam: Interpret EEG 09/27/17 08:56 Consult to Cardiology [CONS] Routine Comment: Consulting Provider: Ketty Arciniega Reason for Consult: high troponin, chest pain, nuclear stress ordered Call Completed: Yes Discharging clinician: Nikky Paiz Anticipated date of discharge: 09/29/17 - Constitutional Vitals: Temp Pulse Resp BP Pulse Ox 98.1 F 70 16 91/56 92 09/29/17 07:35 09/29/17 07:35 09/29/17 07:35 09/29/17 07:35 09/29/17 07:35 General appearance: Present: A&O X 3, answers questions appropriately - Other Additional findings: General: No acute distress, resting in bed HEENT: head normocephalic/atraumatic, EOMI, moist mucus membranes, Neck: Supple, no lymphadenopathy Cardio: RRR, no murmurs, +S1/S2 Pulm: CTAB, no wheezing, rhonchi, rales. Normal respiratory effort. Abdomen: soft, nontender, BS+, nondistended Extremities: No LE edema, no calf tenderness, no cyanosis, clubbing Back: normal appearance on inspection Neuro: AAOx3, no focal deficit, no speech deficit, mentation intact, CN II-XII grossly intact, moves extremities spontaneously MSK: no visible deformities Skin: clean, dry, intact, no visible rashes Psych: depressed mood and constricted affect. Answers questions appropriately. Cooperative with exam - Patient Status Disposition: Transfer Psychiatric Hosp Condition: Good Functional capacity at discharge: independent ambulation Overall status at discharge: patient is progressing back to baseline - Discharge Instructions Follow Up With: NONE,PCP [Primary Care Provider] - - Diet and Activity Activity: resume usual activities as tolerated Diet: advance to your usual diet <Sheila Flores - Last Filed: 09/29/17 18:58> Orders not resulted at time of discharge: Pending orders 09/26/17 06:00 ECG 12 lead ECG [ECG] AM 0600 Date of Encounter: 09/29/17 - Discharge Diagnosis (1) Overdose of benzodiazepine Status: Acute Qualifiers: Encounter type: initial encounter Injury intent: undetermined intent Qualified Code(s): T42.4X4A - Poisoning by benzodiazepines, undetermined, initial encounter (2) Leukocytosis Status: Resolved Qualifiers: Leukocytosis type: unspecified Qualified Code(s): D72.829 - Elevated white blood cell count, unspecified (3) Elevated troponin Status: Resolved (4) Aspiration pneumonitis Status: Resolved (5) Lactic acidosis Status: Resolved (6) Migraine Status: Resolved Qualifiers: Migraine type: unspecified Status migrainosus presence: without status migrainosus Intractability: not intractable Qualified Code(s): G43.909 - Migraine, unspecified, not intractable, without status migrainosus (7) Anxiety and depression Status: Chronic (8) Acute encephalopathy Status: Resolved (9) DVT prophylaxis Status: Acute Hospital course: Ms. Yousif is a 52 year old female - Time Spent with Patient Total time spent providing and/or coordinating discharge services: Date of admission: 09/25/17 23:41 Primary care physician: PCP NONE Consults: 09/26/17 11:37 Consult to Interpret Exam [CONS] Routine Consulting Provider: Kathy Meyer I Consult to Interpret Exam: Interpret EEG 09/27/17 08:56 Consult to Cardiology [CONS] Routine Comment: Consulting Provider: Cardiology Suze Reason for Consult: high troponin, chest pain, nuclear stress ordered Call Completed: Yes - Constitutional Vitals: Temp Pulse Resp BP Pulse Ox 98.5 F 70 18 105/71 96 09/29/17 15:06 09/29/17 15:06 09/29/17 15:06 09/29/17 15:06 09/29/17 15:06 - Attending Attestation I examined this patient and my medical decision-making was reviewed with the Resident Physician Dr. Paiz. I agree with the documented findings, disposition and treatment plan as described except to the extent set forth below. Ms. Yousif is a 52 year old female with PMHX HLD, HTN, anxiety, and depression who presented to [facility] on 09/25/2017 with chief complaint of altered mental status , possible drug overdose. Pt was hypoxic initially. She denied any CP. She is A , A, O x 3. Denied any suicidal ideations Chest: CTA Heart: S1S2+ RRR No murmurs Abd: Soft, NT a/p 1. Acute BZD overdose 2. Suicidal ideation 3. Major depression Yadira evaluated the pt and recommend in patient psych admission on Friday 3. Acute initial NSTEMI mostly demand ischemia with drug overdose and hypoxia 2 D Echo -Preserved LVEF, no wall motion abnormality Card did not recommend Stress test Medically stable to d/c to 1A
--- NOTE | 2017-09-29 10:31 | Discharge Summary ---
Orders not resulted at time of discharge: Pending orders 09/26/17 06:00 ECG 12 lead ECG [ECG] AM 0600 Date of Encounter: 09/29/17 - Discharge Diagnosis (1) Leukocytosis Status: Resolved Qualifiers: Leukocytosis type: unspecified Qualified Code(s): D72.829 - Elevated white blood cell count, unspecified (2) Elevated troponin Status: Acute (3) Aspiration pneumonitis Status: Acute (4) Lactic acidosis Status: Resolved (5) Migraine Status: Resolved Qualifiers: Migraine type: unspecified Status migrainosus presence: without status migrainosus Intractability: not intractable Qualified Code(s): G43.909 - Migraine, unspecified, not intractable, without status migrainosus (6) Anxiety and depression Status: Chronic (7) Acute encephalopathy Status: Resolved (8) DVT prophylaxis Status: Acute Hospital course: Ms. Yousif is a 52 year old female - Time Spent with Patient Total time spent providing and/or coordinating discharge services: - Discharge Medications Home Medications: ALPRAZolam [Xanax 0.5 MG Tablet] 0.5 mg PO TID PRN 09/25/17 [History] Atorvastatin Calcium [Lipitor] 20 mg PO HS 09/25/17 [History] Escitalopram [Lexapro] 20 mg PO DAILY 09/25/17 [History] Gabapentin [Neurontin] 300 mg PO TID 09/25/17 [History] Ipratropium/Albuterol Sulfate [Combivent Respimat Inhal [place]] 1 puff IH DAILY 09/25/17 [History] Pantoprazole Sodium [Protonix] 40 mg PO BID 09/25/17 [History] Allergies/Adverse Reactions: 3 Allergy/AdvReac Type Severity Reaction Status Date / Time morphine Allergy See Verified 09/25/17 21:57 Comments Date of admission: 09/25/17 23:41 Primary care physician: PCP NONE Consults: 09/26/17 11:37 Consult to Interpret Exam [CONS] Routine Consulting Provider: Kathy Meyer I Consult to Interpret Exam: Interpret EEG 09/27/17 08:56 Consult to Cardiology [CONS] Routine Comment: Consulting Provider: Cardiology Suze Reason for Consult: high troponin, chest pain, nuclear stress ordered Call Completed: Yes - Constitutional Vitals: Temp Pulse Resp BP Pulse Ox 98.1 F 70 16 91/56 92 0423/18 07:35 09/29/17 07:35 09/29/17 07:35 09/29/17 07:35 09/29/17 07:35 General appearance: Present: A&O X 3, answers questions appropriately - Patient Status Disposition: Transfer Psychiatric Hosp Condition: Good - Discharge Instructions Follow Up With: NONE,PCP [Primary Care Provider] -
[2017-09-29] MEDS: Ondansetron 4 MG/2 ML VIAL IVP PRN (12:27)
[2017-09-29] MEDS: Acetaminophen 325 MG TABLET PO PRN (16:22)
[2017-09-30] MEDS: Acetaminophen 325 MG TABLET PO PRN ×3 (00:17→15:17)
[2017-09-30] MEDS: Ipratropium 1 PUFF INHALER IH SCH ×3 (03:47→15:34)
[2017-09-30] MEDS: *HR* Heparin 5,000 UNIT/ML VIAL SQ SCH (04:39)
[2017-09-30] MEDS: BuPROPion SR (12 HR) 100 MG TABLET PO SCH (08:55)
[2017-09-30] MEDS: ALPRAZolam 0.5 MG TABLET PO PRN ×2 (08:55→15:18)
[2017-09-30] MEDS ORDERED: Gabapentin 300 MG CAPSULE PO SCH (15:00)
--- NOTE | 2017-09-30 16:24 | Consult Note ---
Date of Encounter: 09/30/17 Time of Encounter: 15:00 Assessment & Recommendation (1) Overdose of benzodiazepine Current visit: Yes Status: Acute Qualifiers: Encounter type: subsequent encounter Injury intent: undetermined intent Qualified Code(s): T42.4X4D - Poisoning by benzodiazepines, undetermined, subsequent encounter (2) Depression Current visit: Yes Status: Acute Qualifiers: Depression Type: major depressive disorder Major depression recurrence: recurrent Major depression episode severity: severe Psychotic features: without psychotic features Qualified Code(s): F33.2 - Major depressive disorder, recurrent severe without psychotic features (3) Anxiety Current visit: Yes Status: Acute History of Present Illness Patient: known to practice within the last 3 years Requesting Physician: Honey Arvizu MD Reason for consult: overdose on benzodiazepam History of present illness: Ms. Yousif is a 52 year old female consulted today for follow up she was seen by psych and recomended psych inpatient once medically stable. She remains depress, hopeless and had od on benzo. she understands her medication are not working well , she is agreeing to get further treatment . once medically cleared she can be transfered to floor. I checked her labs , her troponin levels are high , need to be rechecked before transfer. Thank you for involving us in her care. CC: Honey Arvizu MD Past Med Surg Social Fam HX - Past Medical History Medical history: hyperlipidemia, hypertension - Past Psychiatric History Psychiatric history: Reports: anxiety, depression, previous psychiatric hospitalization Family psychiatric history: Unknown Family History of Suicide: Unknown - Past Surgical History Surgical History: splenectomy - Social History Smoking Status: Current every day smoker Smokeless Tobacco Status: No Alcohol use: none Drug use: none - Family History Mother Living Status: Still Living Hx Family Cardiac Disorders: Yes ([place] 40's) Medications & Allergies ALPRAZolam [Xanax 0.5 MG Tablet] 0.5 mg PO TID PRN 09/25/17 [History] Atorvastatin Calcium [Lipitor] 20 mg PO HS 09/25/17 [History] Escitalopram [Lexapro] 20 mg PO DAILY 09/25/17 [History] Gabapentin [Neurontin] 300 mg PO TID 09/25/17 [History] Ipratropium/Albuterol Sulfate [Combivent Respimat Inhal [place]] 1 puff IH DAILY 09/25/17 [History] Pantoprazole Sodium [Protonix] 40 mg PO BID 09/25/17 [History] 3 Allergy/AdvReac Type Severity Reaction Status Date / Time morphine Allergy See Verified 09/25/17 21:57 Comments Review of Systems Psychiatric: Reports: depression, anxiety, suicidal ideation Psychiatry Exam - Constitutional Vitals: Temp Pulse Resp BP Pulse Ox 98 F 65 14 103/64 91 09/30/17 08:18 09/30/17 08:18 09/30/17 08:18 09/30/17 08:18 09/30/17 08:18 General appearance: age & developmentally appropriate - Musculoskeletal Strength & Tone: normal for patient - Psychiatric Patient Orientation: Yes Person, Yes Time, Yes Place Level of alertness: Alert Behavior: cooperative, withdrawn Psychomotor activity: Slowed Eye Contact: Maintains Eye Contact Mood Description: Depressed, Anxious Affect description: congruent with mood Thought Content: Yes Guilt Judgment: Limited Insight: Partial Results - Labs Labs: Laboratory Last Values WBC 8.4 K/mcL (4.3-11.1) 09/27/17 03:34 RBC 3.78 M/mcL (3.82-4.97) L 09/27/17 03:34 Hgb 11.7 g/dL (11.5-15.4) 09/27/17 03:34 Hct 36.6 % (35.3-44.9) 09/27/17 03:34 MCV 96.8 fL (83.0-100.0) 09/27/17 03:34 MCH 31.0 pg (28.0-33.3) 09/27/17 03:34 MCHC 32.0 g/dL (31.6-35.5) 09/27/17 03:34 RDW 13.6 % (11.5-14.5) 09/27/17 03:34 Plt Count 320 K/mcL (140-400) 09/27/17 03:34 MPV 11.8 fL (9.4-12.4) 09/27/17 03:34 Immature Gran % 0.3 % (0-4) 09/26/17 07:06 Seg Neutrophils % 46.0 % 09/26/17 07:06 Lymphocytes % 43.6 % 09/26/17 07:06 Monocytes % 7.9 % 09/26/17 07:06 Eosinophils % 1.7 % 09/26/17 07:06 Basophils % 0.5 % 09/26/17 07:06 Neutrophils # 5.0 K/mcL (1.6-8.9) 09/26/17 07:06 Lymphocytes # 4.8 K/mcL (0.6-4.6) H 09/26/17 07:06 Monocytes # 0.9 K/mcL (0.0-1.3) 09/26/17 07:06 Eosinophils # 0.2 K/mcL (0.0-0.6) 09/26/17 07:06 Basophils # 0.1 K/mcL (0.0-0.2) 09/26/17 07:06 Sodium 139 mEq/L (136-145) 09/27/17 03:34 Potassium 3.6 mEq/L (3.5-5.1) 09/27/17 03:34 Chloride 105 mEq/L (98-107) 09/27/17 03:34 Carbon Dioxide 26 mEq/L (23-29) 09/27/17 03:34 BUN 7 mg/dL (6-20) 09/27/17 03:34 Creatinine 0.52 mg/dL (0.60-1.20) L 09/27/17 03:34 Est GFR ( Amer) > 60 (> 60) 09/27/17 03:34 Est GFR (Non-Af Amer) > 60 (> 60) 09/27/17 03:34 BUN/Creatinine Ratio 13 (6-26) 09/27/17 03:34 Glucose 135 mg/dL (70-105) H 09/27/17 03:34 Calculated Osmolality 288 (280-300) 09/27/17 03:34 Lactic Acid 2.0 mmol/L (0.5-2.2) 09/25/17 23:53 Calcium 8.8 mg/dL (8.6-10.3) 09/27/17 03:34 Phosphorus 3.7 mg/dL (2.7-4.5) 09/26/17 07:06 Magnesium 1.9 mg/dL (1.6-2.6) 09/26/17 07:06 Total Bilirubin 0.2 mg/dL (0.3-1.0) L 09/26/17 07:06 AST 25 Units/L (13-39) 09/26/17 07:06 ALT 21 Units/L (7-52) 09/26/17 07:06 Alkaline Phosphatase 86 Units/L (34-104) 09/26/17 07:06 Troponin I 0.06 ng/mL (< 0.04) H* 09/26/17 12:59 B-Natriuretic Peptide 16 pg/mL (Less than 100) 09/25/17 21:57 Serum Total Protein 6.2 g/dL (6.4-8.9) L 09/26/17 07:06 Albumin 3.4 g/dL (3.5-5.7) L 09/26/17 07:06 Globulin 2.8 g/dL (2.4-3.5) 09/26/17 07:06 Albumin/Globulin Ratio 1.2 (1.1-2.2) 09/26/17 07:06 Urine Color Yellow (Yellow) 09/25/17 21:20 Urine Clarity Clear (Clear) 09/25/17 21:20 Urine pH 5.5 pH Units (5.0-8.0) 09/25/17 21:20 Ur Specific [place] 1.026 (1.010-1.025) H 09/25/17 21:20 Urine Protein Trace mg/dL (Neg-Trace) 09/25/17 21:20 Urine Glucose (UA) 250 mg/dL (Normal) H 09/25/17 21:20 Urine Ketones Negative mg/dL (Negative) 09/25/17 21:20 Urine Blood Negative (Negative) 09/25/17 21:20 Urine Nitrite Negative (Negative) 09/25/17 21:20 Urine Bilirubin Negative (Negative) 09/25/17 21:20 Urine Urobilinogen Normal mg/dL (Normal) 09/25/17 21:20 Ur Leukocyte Esterase Negative (Negative) 09/25/17 21:20 Urine Microscopic RBC 0-3 per hpf (0-3) 09/25/17 21:20 Urine Microscopic WBC 0-3 per hpf (0-3) 09/25/17 21:20 Ur Squamous Epith Cells Many per lpf (None-Few) H 09/25/17 21:20 Urine Bacteria None Seen per hpf (None-Few) 09/25/17 21:20 Hyaline Casts None Seen per lpf (None-Few) 09/25/17 21:20 Salicylates < 2.5 mg/dL (15.0-30.0) L 09/25/17 21:57 Urine Opiates Screen Negative ng/mL (Tfnvff=990) 09/25/17 21:20 Acetaminophen < 10 mcg/mL (10-20) L 09/25/17 21:57 Ur Barbiturates Screen Negative ng/mL (Qzslth=222) 09/25/17 21:20 Ur Phencyclidine Scrn Negative ng/mL (Cutoff=25) 09/25/17 21:20 Ur Amphetamines Screen Negative ng/mL (Mitqxo=6704) 09/25/17 21:20 U Benzodiazepines Scrn Positive ng/mL (Vkebvo=518) H 09/25/17 21:20 Urine Cocaine Screen Negative ng/mL (Cutoff= 300) 09/25/17 21:20 U Marijuana (THC) Screen Positive ng/mL (Cutoff = 50) H 09/25/17 21:20 Ethyl Alcohol < 10 mg/dL (Less than 10) 09/25/17 21:57 Consult Discharge Plan - Plan Referrals: NONE,PCP [Primary Care Provider] - (Patient can make a hospital follow up once discharged from the hospital within 5-7 days. Thank you!)
[2017-09-30 16:37] VITALS: BP 108/75
--- NOTE | 2017-09-30 21:22 | Internal Med Progress Note ---
Date of Encounter: 09/30/17 Time of Encounter: 15:37 - Assessment and plan (1) Overdose of benzodiazepine Status: Resolved Assessment and plan: Resolved. Qualifiers: Encounter type: subsequent encounter Injury intent: undetermined intent Qualified Code(s): T42.4X4D - Poisoning by benzodiazepines, undetermined, subsequent encounter (2) Leukocytosis Status: Resolved Assessment and plan: Resolved. Qualifiers: Leukocytosis type: unspecified Qualified Code(s): D72.829 - Elevated white blood cell count, unspecified (3) Elevated troponin Status: Resolved Assessment and plan: Resolved. (4) Aspiration pneumonitis Status: Resolved Assessment and plan: Resolved. (5) Lactic acidosis Status: Resolved (6) Migraine Status: Resolved Assessment and plan: Resovled. Use Tylenol PRN. Qualifiers: Migraine type: unspecified Status migrainosus presence: without status migrainosus Intractability: not intractable Qualified Code(s): G43.909 - Migraine, unspecified, not intractable, without status migrainosus (7) Anxiety and depression Status: Chronic Assessment and plan: Plan for transfer to inpatient psychiatry service today. Continue sitter. Continue xanax, lexapro, and wellbutrin. (8) Acute encephalopathy Status: Resolved Assessment and plan: Resolved. (9) Chronic lower back pain Status: Acute Assessment and plan: Restart home gabapentin. Continue Tylenol PRN. Avoid opioids at this time due to recent encephalopathy. Qualifiers: Back pain laterality: unspecified Sciatica presence: unspecified whether sciatica present Qualified Code(s): M54.5 - Low back pain; G89.29 - Other chronic pain; G89.29 - Other chronic pain (10) DVT prophylaxis Status: Acute Assessment and plan: Continue Heparin 5,000 units SQ Q12H. - Time Spent With Patient Total time spent is greater than 50% in coordination of care (as documented) at patient's floor/unit and/or counseling patient: less than 15 minutes - Subjective Interval history: Patient had no acute events overnight. She states that she is having back pain. She states that this is a chronic issue at home, but is worse here today. We discussed restarting home gabapentin now that she is awake. She denies depression or suicidal ideation. She denies fever, chills, chest pain, SOB, or abdominal pain. She has no other complaints. - Constitutional Vitals: Temp Pulse Resp BP Pulse Ox 98.3 F 63 14 108/75 92 09/30/17 16:36 09/30/17 16:36 09/30/17 16:36 09/30/17 16:36 09/30/17 16:36 General appearance: Present: cooperative, A&O X 3, pleasant, no acute distress, answers questions appropriately - Respiratory Respiratory exam: Present: CTAB. Absent: accessory muscle use, rales, rhonchi, wheezes Additional comments: Normal WOB - Cardiovascular Cardiovascular exam: Present: RRR, +S1, +S2. Absent: diastolic murmur, gallop, rubs, systolic murmur Additional comments: No BLE edema - GI/Abdominal GI/Abdominal exam: Present: normal bowel sounds, soft. Absent: distended, hepatomegaly, mass, splenomegaly, tenderness - Back Exam Back exam: Present: normal inspection, paraspinal tenderness - Psychiatric Psychiatric exam: Present: normal affect, normal mood. Absent: agitated, anxious, depressed - Skin Skin exam: Present: dry, intact, warm. Absent: cyanosis, rash Internal Medicine: Result - Labs CBC & Chem 7: 09/27/17 03:34 09/27/17 03:34 Labs: Cardiac Enzymes 09/30/17 Range/Units 16:33 Troponin I < 0.03 (< 0.04) ng/mL Consult Discharge Plan - Plan Referrals: NONE,PCP [Primary Care Provider] - (Patient can make a hospital follow up once discharged from the hospital within 5-7 days. Thank you!)
== END 2017-09-30 18:09 | DRG 812 ==
LOC: 2ANU 20:53 → EMEROO 20:53 → 2ANU 09-26
PROVIDERS: ADMIT Internal Medicine Cardiovascular Disease; ATTEND Internal Medicine Cardiovascular Disease

== ENCOUNTER 2017-09-30 18:13 | Inpatient (IN) ==
[2017-09-30] MEDS ORDERED: Haloperidol Lactate 5 MG/ML VIAL IM PRN (18:44)
[2017-09-30] MEDS ORDERED: *HR* LORazepam 1 MG TABLET PO PRN (18:44)
[2017-09-30] MEDS ORDERED: Acetaminophen 325 MG TABLET PO PRN (18:44)
[2017-09-30] MEDS ORDERED: Mag Hydrox/Al Hydrox/Simeth 30 ML UDC PO PRN (18:44)
[2017-09-30] MEDS ORDERED: MOM Conc 10 ML UD.LIQ PO PRN (18:44)
[2017-09-30] MEDS ORDERED: *HR* LORazepam 2 MG/ML VIAL IM PRN (18:44)
[2017-09-30] MEDS: ALPRAZolam 0.5 MG TABLET PO PRN (20:45)
[2017-09-30] MEDS: Gabapentin 300 MG CAPSULE PO SCH (20:46)
[2017-09-30] MEDS: traZODone 50 MG TABLET PO PRN (20:49)
[2017-09-30] MEDS: hydrOXYzine pamoate 25 MG CAPSULE PO PRN (22:45)
[2017-10-01] MEDS: Gabapentin 300 MG CAPSULE PO SCH (09:27)
[2017-10-01] MEDS: Nicotine 21 MG PATCH.TD24 TD SCH (09:30)
[2017-10-01] MEDS: ALPRAZolam 0.5 MG TABLET PO PRN (09:30)
[2017-10-01] MEDS: (Ipratropium/Albuterol Sulfate [Combivent Respimat In IH SCH (09:32)
--- NOTE | 2017-10-01 10:10 | Psychiatry History & Physical ---
Date of Encounter: 10/01/17 Time of Encounter: 09:50 History of Present Illness Patient Stated Chief Complaint: I took too many medications Medicare Admission Attestation: For traditional Medicare patients the provided hospital inpatient services are reasonable and necessary and in the case of services not specified as inpatient -only under 42 CFR 419.22 (n), that they are appropriately provided as inpatient services in accordance 42 CFR 412.3. For Critical Access Hospital the patient may reasonably be expected to be discharged or transferred to a hospital within 96 hours after admission to the Critical Access Hospital. Admitted From: Intrahospital Transfer Plans for Post Hospital Care: Home History of Present Illness: Ms. Yousif is a 52 year old female evaluated today . patient was consulted on medical floor for overdose and remained depress and hopeless but no plan to hurt self , she took xanax 5 or more does not remember and also gabapentin and lexapro does not remember the quantity , i just wanted to sleep and i was very depress. She has h/o Depression and anxiety , insomnia , and is treated by PCP and counsellor. She has been on multiple antidepressants in past , she has not been getting any improvement . She lives with her Boy Friend and has good relationship. She is significantly depress, anhedonia, dysphoric affect , psychomotor retardation , hopeless, worthless , increase fatigue , more irritability. not sleeping well and increase anxiety and worries, does not like to be around too many people. she denies manic episode , no psychosis. no acute stress. Past psych she is in treatment for depression and anxiety for 5 years. by PCP and counsellor no suicidal attempts in past and no psych inpatient. FAMILY History denies Medical od on benzo and gabapentin HTN,HLD,IBS,GERD. Chronic back pain . Patient needs inpatient stabilization for safety as has severe depression and hopeless and worthless thoughts and i do not want to live like this . she will benefit from change of medications and supportive enviornment . Past Med Surg Social Fam HX - Past Medical History Medical history: hyperlipidemia, hypertension - Past Psychiatric History Psychiatric history: Reports: anxiety, depression Family psychiatric history: No Family History of Suicide: None - Past Surgical History Surgical History: splenectomy - Social History Smoking Status: Current every day smoker Smokeless Tobacco Status: No Alcohol use: none Drug use: marijuana - Family History Mother Living Status: Still Living Hx Family Cardiac Disorders: Yes ([place] 40's) Medications & Allergies ALPRAZolam [Xanax 0.5 MG Tablet] 0.5 mg PO TID PRN 09/25/17 [History] Atorvastatin Calcium [Lipitor] 20 mg PO HS 09/25/17 [History] Escitalopram [Lexapro] 20 mg PO DAILY 09/25/17 [History] Gabapentin [Neurontin] 300 mg PO TID 09/25/17 [History] Ipratropium/Albuterol Sulfate [Combivent Respimat Inhal [place]] 1 puff IH DAILY 09/25/17 [History] Pantoprazole Sodium [Protonix] 40 mg PO BID 09/25/17 [History] 3 Allergy/AdvReac Type Severity Reaction Status Date / Time morphine Allergy See Verified 09/25/17 21:57 Comments Review of Systems Constitutional: Denies: fever, chills, weakness, weight change Eyes: Denies: eye pain, vision change Ears, Nose, Throat: Denies: ear pain, throat pain, dental pain, hearing loss, congestion Cardiovascular: Denies: chest pain, palpitations, dyspnea on exertion Respiratory: Denies: cough, dyspnea, wheezes Gastrointestinal: Denies: abdominal pain, nausea, vomiting, diarrhea, constipation Genitourinary female: Denies: urgency, dysuria, frequency, abnormal menses, dyspareunia Musculoskeletal: Denies: joint swelling, joint pain Integumentary: Denies: rash, lesions, pruritus Neurological: Denies: headache, weakness, numbness, memory loss Psychiatric: Reports: depression, anxiety, suicidal ideation, anhedonia, difficulty concentrating, hopelessness, panic attacks Endocrine: Denies: fatigue, heat or cold intolerance Hematologic/Lymphatic: Denies: easy bruising, lymphadenopathy Allergic/Immunologic: Denies: urticaria, itchy eyes Exam - HEENT Head exam IM: Present: atraumatic Eye exam IM: Present: EOMI, normal appearance, PERRL ENT exam IM: Present: normal exam - Neurological Neurological exam: Present: CN II-XII intact - Respiratory Respiratory exam IM: Present: CTAB - GI/Abdominal GI/Abdominal exam IM: Present: normal bowel sounds, soft. Absent: tenderness - Extremities Extremities exam IM: Present: full ROM - Skin Skin exam IM: Present: dry, warm - Constitutional Vitals: Temp Pulse Resp BP 97.2 F L 74 16 126/66 10/01/17 09:00 04/25/18 09:00 10/01/17 09:00 10/01/17 09:00 General appearance: age & developmentally appropriate, well-groomed, well- nourished - Musculoskeletal Gait: slow Station: relaxed Strength & Tone: normal for patient - Psychiatric Patient Orientation: Yes Person, Yes Time, Yes Place Level of alertness: Alert Behavior: cooperative, withdrawn Psychomotor activity: Slowed Eye Contact: Minimal Contact Mood Description: Depressed, Anxious Affect description: dysphoric, anxious Speech Volume: Soft/Quiet Speech pattern: slowed Language & Vocabulary: consistent with education Thought Process: Slowed Thinking Thought Content: Yes Intact Perceptual Disturbances: No Auditory hallucinations, No Visual hallucinations Attention Span Ability: Unable to Focus, Unable to Sustain Attention Memory Description: Grossly Intact Patient Reliability: Reliable Historian Fund of knowledge: Yes average Intelligence Estimate: Average Judgment: Limited Insight: Partial Assessment and Plan (1) Overdose of benzodiazepine Current visit: No Status: Resolved Plan: Admit inpatient for safety and stabilization, Close observation, Suicide Precautions per unit protocol, Encourage participation in unit milieu, Group Therapy, Monitor sleep, Monitor appetite, Family/Supportive other meeting Risks, benefits, side effects, alternatives discussed w/pt: Yes Patient agreeable to treatment: Yes Plans for Post Hospital Care: Home Estimated Length of Stay (Days): 5 Qualifiers: Encounter type: subsequent encounter Injury intent: undetermined intent Qualified Code(s): T42.4X4D - Poisoning by benzodiazepines, undetermined, subsequent encounter (2) Depression Current visit: No Status: Acute Plan: Admit inpatient for safety and stabilization, Suicide Precautions per unit protocol, Encourage participation in unit milieu, Group Therapy, Monitor sleep, Monitor appetite Additional Plan: will add seroquel for sleep and anxiety , will add wellbutrin 150 mg am Risks, benefits, side effects, alternatives discussed w/pt: Yes Patient agreeable to treatment: Yes Estimated Length of Stay (Days): 5 Qualifiers: Depression Type: major depressive disorder Major depression recurrence: recurrent Active/Remission status: currently active Major depression episode severity: severe Psychotic features: without psychotic features Qualified Code(s): F33.2 - Major depressive disorder, recurrent severe without psychotic features (3) Anxiety Current visit: No Status: Acute Plan: Admit inpatient for safety and stabilization, Close observation, Suicide Precautions per unit protocol, Encourage participation in unit milieu, Group Therapy, Monitor sleep, Monitor appetite, Family/Supportive other meeting Additional Plan: dc xanax as OD and not helping much , will start baclofen 5 mg tid as will help anxiety and muscle spasm . Risks, benefits, side effects, alternatives discussed w/pt: Yes Patient agreeable to treatment: Yes Plans for Post Hospital Care: at Home (4) Chronic lower back pain Current visit: No Status: Chronic Plan: Close observation, Encourage participation in unit milieu, Group Therapy, Monitor sleep Risks, benefits, side effects, alternatives discussed w/pt: Yes Patient agreeable to treatment: Yes Plans for Post Hospital Care: at Home Estimated Length of Stay (Days): 5 Qualifiers: Back pain laterality: unspecified Sciatica presence: unspecified whether sciatica present Qualified Code(s): M54.5 - Low back pain; G89.29 - Other chronic pain; G89.29 - Other chronic pain
[2017-10-01] MEDS: BuPROPion XL (24 HR) 150 MG TABLET PO SCH (11:11)
[2017-10-01] MEDS: Baclofen 10 MG TABLET PO SCH ×2 (15:26→21:08)
[2017-10-01] MEDS: Gabapentin 400 MG CAPSULE PO SCH ×2 (15:27→21:07)
[2017-10-01] MEDS: traZODone 50 MG TABLET PO PRN (21:08)
[2017-10-01] MEDS: hydrOXYzine pamoate 25 MG CAPSULE PO PRN (21:08)
[2017-10-02] MEDS: Nicotine 21 MG PATCH.TD24 TD SCH (08:27)
[2017-10-02] MEDS: Baclofen 10 MG TABLET PO SCH ×3 (08:28→20:23)
[2017-10-02] MEDS: Gabapentin 400 MG CAPSULE PO SCH ×3 (08:28→20:36)
[2017-10-02] MEDS: BuPROPion XL (24 HR) 150 MG TABLET PO SCH (08:29)
[2017-10-02] MEDS: (Ipratropium/Albuterol Sulfate [Combivent Respimat In IH SCH (08:37)
--- NOTE | 2017-10-02 10:16 | Psychiatry Progress Note ---
Date of Encounter: 10/02/17 Time of Encounter: 09:05 Subjective Interval history: Patient seen today , case d/w treatment team , no event last night. compliant with treatment milieu and remains depress and anxious. she has slept little better last night. i am better , she is worried about her mother as going to have surgery and is worried about her and increase anxiety. she was non compliant with her escitalopram and now since inpatient taking her medications and feels they are working and understands needs to take them daily. she at present denies suicidal ideation but is still depress, lack of motivation , she is attending groups and learning coping skills. continue same rx plan. Review of Systems Psychiatric: Reports: depression, anxiety, suicidal ideation, anhedonia, difficulty concentrating, hopelessness, panic attacks Results - Vital Signs Vital Signs: Temp Pulse Resp BP 99.6 F 84 16 151/95 10/01/17 21:00 10/01/17 21:00 10/01/17 21:00 10/01/17 21:00 Assessment and Plan (1) Overdose of benzodiazepine Current visit: No Status: Resolved Risks, benefits, side effects, alternatives discussed w/pt: Yes Patient agreeable to treatment: Yes Qualifiers: Encounter type: subsequent encounter Injury intent: undetermined intent Qualified Code(s): T42.4X4D - Poisoning by benzodiazepines, undetermined, subsequent encounter (2) Depression Current visit: No Status: Acute Risks, benefits, side effects, alternatives discussed w/pt: Yes Patient agreeable to treatment: Yes Qualifiers: Depression Type: major depressive disorder Major depression recurrence: recurrent Active/Remission status: currently active Major depression episode severity: severe Psychotic features: without psychotic features Qualified Code(s): F33.2 - Major depressive disorder, recurrent severe without psychotic features (3) Anxiety Current visit: No Status: Acute Risks, benefits, side effects, alternatives discussed w/pt: Yes Patient agreeable to treatment: Yes (4) Chronic lower back pain Current visit: No Status: Chronic Risks, benefits, side effects, alternatives discussed w/pt: Yes Patient agreeable to treatment: Yes Qualifiers: Back pain laterality: unspecified Sciatica presence: unspecified whether sciatica present Qualified Code(s): M54.5 - Low back pain; G89.29 - Other chronic pain; G89.29 - Other chronic pain Consult Discharge Plan - Plan Referrals: NONE,PCP [Primary Care Provider] - Psychiatry Exam - Constitutional Vitals: Temp Pulse Resp BP 99.6 F 84 16 151/95 10/01/17 21:00 10/01/17 21:00 10/01/17 21:00 10/01/17 21:00 General appearance: age & developmentally appropriate, well-groomed, well- nourished - Musculoskeletal Gait: normal Station: relaxed Strength & Tone: normal for patient - Psychiatric Patient Orientation: Yes Person, Yes Time, Yes Place Level of alertness: Alert Behavior: calm, cooperative Psychomotor activity: Slowed Eye Contact: Maintains Eye Contact Mood Description: Depressed, Anxious Affect description: congruent with mood Speech Volume: Soft/Quiet Speech pattern: slowed Language & Vocabulary: consistent with education Thought Process: Intact Thought Content: Yes Guilt Perceptual Disturbances: No Auditory hallucinations, No Visual hallucinations Attention Span Ability: Capable of Focused Attention Memory Description: Grossly Intact Patient Reliability: Reliable Historian Fund of knowledge: Yes abstraction ability, Yes aware of current events Intelligence Estimate: Average Judgment: Limited Insight: Partial
[2017-10-02] MEDS: traZODone 50 MG TABLET PO PRN (20:35)
[2017-10-03] MEDS: Nicotine 21 MG PATCH.TD24 TD SCH (09:32)
[2017-10-03] MEDS: BuPROPion XL (24 HR) 150 MG TABLET PO SCH (09:34)
[2017-10-03] MEDS: Baclofen 10 MG TABLET PO SCH ×3 (09:34→21:30)
[2017-10-03] MEDS: Gabapentin 400 MG CAPSULE PO SCH ×3 (09:35→21:30)
[2017-10-03] MEDS: (Ipratropium/Albuterol Sulfate [Combivent Respimat In IH SCH (09:50)
--- NOTE | 2017-10-03 11:06 | Psychiatry Progress Note ---
Date of Encounter: 10/03/17 Time of Encounter: 10:40 Subjective Interval history: Patient seen today , case d/w treatment team. She has been doing better and today affect is better and more verbal, she is not suicidal and has hope. She has short and roasterman goals and is plan to get better and will be living for few days post discharge with parents of his Boy Friend . She has good support and has shown improvement . WIll dc tomorrow. Review of Systems Psychiatric: Reports: depression, anxiety, suicidal ideation, anhedonia, difficulty concentrating, hopelessness, panic attacks Results - Vital Signs Vital Signs: Temp Pulse Resp BP 98.4 F 71 16 122/72 10/03/17 09:00 10/03/17 09:00 10/03/17 09:00 10/03/17 09:00 Assessment and Plan (1) Overdose of benzodiazepine Current visit: No Status: Resolved Plan: Continue hospitalization, Close observation, Suicide Precautions per unit protocol, Encourage participation in unit milieu, Group Therapy, Monitor sleep, Monitor appetite, Family/Supportive other meeting Risks, benefits, side effects, alternatives discussed w/pt: Yes Patient agreeable to treatment: Yes Qualifiers: Encounter type: subsequent encounter Injury intent: undetermined intent Qualified Code(s): T42.4X4D - Poisoning by benzodiazepines, undetermined, subsequent encounter (2) Depression Current visit: No Status: Acute Plan: Continue hospitalization, Close observation, Suicide Precautions per unit protocol, Encourage participation in unit milieu, Group Therapy, Monitor sleep, Monitor appetite, Family/Supportive other meeting Risks, benefits, side effects, alternatives discussed w/pt: Yes Patient agreeable to treatment: Yes Qualifiers: Depression Type: major depressive disorder Major depression recurrence: recurrent Active/Remission status: currently active Major depression episode severity: severe Psychotic features: without psychotic features Qualified Code(s): F33.2 - Major depressive disorder, recurrent severe without psychotic features (3) Anxiety Current visit: No Status: Acute Plan: Continue hospitalization, Close observation, Suicide Precautions per unit protocol, Encourage participation in unit milieu, Group Therapy, Monitor sleep, Monitor appetite, Family/Supportive other meeting Risks, benefits, side effects, alternatives discussed w/pt: Yes Patient agreeable to treatment: Yes (4) Chronic lower back pain Current visit: No Status: Chronic Risks, benefits, side effects, alternatives discussed w/pt: Yes Patient agreeable to treatment: Yes Qualifiers: Back pain laterality: unspecified Sciatica presence: unspecified whether sciatica present Qualified Code(s): M54.5 - Low back pain; G89.29 - Other chronic pain; G89.29 - Other chronic pain Consult Discharge Plan - Plan Referrals: Viri Galindo [Other] - 10/10/17 2:20 pm (The above appointment is with Viri Galindo for primary health care and medication management services. Your counselor, Anna Marie, will come across the street to Viri's office to meet with you as well.) Toni Rodriguez [facility] [Other] - 10/10/17 2:20 pm (Anna Marie will meet with you in your primary care office, not her office, when you are seen by Viri Galindo.) Psychiatry Exam - Constitutional Vitals: Temp Pulse Resp BP 98.4 F 71 16 122/72 10/03/17 09:00 10/03/17 09:00 10/03/17 09:00 10/03/17 09:00 General appearance: age & developmentally appropriate - Musculoskeletal Gait: normal Station: relaxed Strength & Tone: normal for patient - Psychiatric Patient Orientation: Yes Person, Yes Time, Yes Place Level of alertness: Alert Behavior: calm, cooperative Psychomotor activity: Slowed Eye Contact: Maintains Eye Contact Mood Description: Anxious Affect description: congruent with mood Speech Volume: Normal Speech pattern: normal rate, normal rhythm, normal tone, fluent, spontaneous Language & Vocabulary: consistent with education Thought Process: Linear, Goal Oriented Thought Content: Yes Guilt Perceptual Disturbances: No Auditory hallucinations, No Visual hallucinations Attention Span Ability: Capable of Focused Attention Memory Description: Grossly Intact Patient Reliability: Reliable Historian Fund of knowledge: Yes abstraction ability, Yes aware of current events Intelligence Estimate: Average Judgment: Fair Insight: Partial
[2017-10-03] MEDS: hydrOXYzine pamoate 25 MG CAPSULE PO PRN (18:30)
[2017-10-03] MEDS: traZODone 50 MG TABLET PO PRN (21:30)
[2017-10-04] MEDS: Baclofen 10 MG TABLET PO SCH (08:07)
[2017-10-04] MEDS: Gabapentin 400 MG CAPSULE PO SCH (08:08)
[2017-10-04] MEDS: BuPROPion XL (24 HR) 150 MG TABLET PO SCH (08:08)
[2017-10-04] MEDS: Nicotine 21 MG PATCH.TD24 TD SCH (08:08)
[2017-10-04] MEDS: (Ipratropium/Albuterol Sulfate [Combivent Respimat In IH SCH (08:22)
[2017-10-04 08:41] VITALS: BP 118/70
--- NOTE | 2017-10-04 11:20 | Discharge Summary ---
Date of Encounter: 10/04/17 Time of Encounter: 10:55 Diagnosis - Discharge Diagnosis (1) Overdose of benzodiazepine Status: Resolved Qualifiers: Encounter type: subsequent encounter Injury intent: accidental or unintentional Qualified Code(s): T42.4X1D - Poisoning by benzodiazepines, accidental (unintentional), subsequent encounter (2) Depression Status: Acute Comments: patient has shown improvement in her depression , family also feels she has done good. denies any suicidal or homicidal ideation. Qualifiers: Depression Type: major depressive disorder Major depression recurrence: recurrent Active/Remission status: currently active Major depression episode severity: severe Psychotic features: without psychotic features Qualified Code(s): F33.2 - Major depressive disorder, recurrent severe without psychotic features (3) Anxiety Status: Acute Comments: patient showed improvement in her anxiety s/s. (4) Chronic lower back pain Status: Chronic Qualifiers: Back pain laterality: unspecified Sciatica presence: unspecified whether sciatica present Qualified Code(s): M54.5 - Low back pain; G89.29 - Other chronic pain; G89.29 - Other chronic pain Medications - Discharge Medications Prescriptions: Baclofen [Lioresal] 5 mg PO TID #30 tablet BuPROPion XL (24 HR) [Wellbutrin Xl] 150 mg PO DAILY #14 tab.er.24h Escitalopram [Lexapro] 20 mg PO DAILY #14 tablet Gabapentin [Neurontin] 400 mg PO TID #90 capsule Quetiapine Fumarate [Seroquel] 50 mg PO HS #14 tablet Atorvastatin Calcium [Lipitor] 20 mg PO HS 09/25/17 [History] Ipratropium/Albuterol Sulfate [Combivent Respimat Inhal [place]] 1 puff IH DAILY 09/25/17 [History] Pantoprazole Sodium [Protonix] 40 mg PO BID 09/25/17 [History] Baclofen [Lioresal] 5 mg PO TID #30 tablet 10/04/17 [Rx] BuPROPion XL (24 HR) [Wellbutrin Xl] 150 mg PO DAILY #14 tab.er.24h 10/04/17 [Rx ] Escitalopram [Lexapro] 20 mg PO DAILY #14 tablet 10/04/17 [Rx] Gabapentin [Neurontin] 400 mg PO TID #90 capsule 10/04/17 [Rx] Quetiapine Fumarate [Seroquel] 50 mg PO HS #14 tablet 10/04/17 [Rx] 3 Allergy/AdvReac Type Severity Reaction Status Date / Time morphine Allergy See Verified 09/25/17 21:57 Comments Provider Date of admission: 09/30/17 18:13 Primary care physician: PCP NONE Psychiatry Exam - Constitutional Vitals: Temp Pulse Resp BP 98.4 F 76 16 118/70 10/04/17 08:41 10/04/17 08:41 10/04/17 08:41 10/04/17 08:41 General appearance: age & developmentally appropriate, well-groomed, well- nourished - Musculoskeletal Gait: normal Station: relaxed Strength & Tone: normal for patient - Psychiatric Patient Orientation: Yes Person, Yes Time, Yes Place Level of alertness: Alert Behavior: calm, cooperative Psychomotor activity: Normal Eye Contact: Maintains Eye Contact Mood Description: Anxious Affect description: congruent with mood, full range Speech Volume: Normal Speech pattern: normal rate, normal rhythm, normal tone, fluent, spontaneous Language & Vocabulary: consistent with education Thought Process: Linear, Goal Oriented Thought Content: No Suicidal ideation, No Homicidal ideation, No Overt delusions Perceptual Disturbances: Yes Reacting to internal stimuli Attention Span Ability: Capable of Focused Attention Memory Description: Grossly Intact Patient Reliability: Reliable Historian Fund of knowledge: Yes abstraction ability, Yes aware of current events Intelligence Estimate: Average Judgment: Fair Insight: Full Hospital Course Hospital course: Ms. Yousif is a 52 year old female at ADmission patient was consulted on medical floor for overdose and remained depress and hopeless but no plan to hurt self , she took xanax 5 or more does not remember and also gabapentin and lexapro does not remember the quantity , i just wanted to sleep and i was very depress. She has h/o Depression and anxiety , insomnia , and is treated by PCP and counsellor. She has been on multiple antidepressants in past , she has not been getting any improvement . She lives with her Boy Friend and has good relationship. She is significantly depress, anhedonia, dysphoric affect , psychomotor retardation , hopeless, worthless , increase fatigue , more irritability. not sleeping well and increase anxiety and worries, does not like to be around too many people. she denies manic episode , no psychosis. During her inpatient stay at she was initially very depress, lack of motivation , dysphoric affect and psychomotor retardation and hopless. She improved with treatment and unit milieu ad was compliant , medications were added and her xanax was discontinued. Patient aware not to take benzo , she has been educated and councelled. She is on wellbutrin xl 150 mg, escitalopram 20 mg, seroquel 25 mg hs, baclofen 5 mg tid and gabapentin was increased to 400 mg tid. she denies side effetcs and AIMS o. She has good support from family and friends. Time spent discussing smoking cessation with patient: 3 to 10 minutes Does patient wish to continue nicotine replacement upon disc: No (patient educated she does not want ot stop but has decreasing it slowly.) - Time Spent with Patient Total time spent providing and/or coordinating discharge services: Greater than 30 minutes Assessment and Plan - Patient/Caregiver Discharge Instructions Activity: resume usual activities as tolerated Diet: regular diet - Follow up Plan Follow up with: Viri Galindo [Other] - 10/10/17 2:20 pm (The above appointment is with Viri Galindo for primary health care and medication management services. Your counselor, Anna Marie, will come across the street to Viri's office to meet with you as well.) Toni Rodriguez [place] [facility] [Other] - 10/10/17 2:20 pm (Anna Marie will meet with you in your primary care office, not her office, when you are seen by Viri Galindo.) Overall status at discharge: Stable Disposition: Home, Self-Care Quality - Multiple Antipsychotics Patient discharged on 2 or more antipsychotic medications: No Procedures - Procedures Procedures: Medication Management, Crisis Stabilization, Supportive Therapy, Group Therapy, Psychoeducational Therapy
== END 2017-10-04 12:59 | disposition home or self-care (01) | DRG 751 ==
LOC: 1ANU 18:13
PROVIDERS: ADMIT Psychiatry & Neurology Psychiatry; ATTEND Psychiatry & Neurology Psychiatry

== ENCOUNTER 2021-11-27 20:44 | Observation (INO) ==
[2021-11-27] MEDS ORDERED: Ketorolac 30 MG/ML VIAL IVP ONE (22:25)
[2021-11-27] MEDS ORDERED: Iopamidol - 370 500 ML MLS IVP ONE ×2 (22:25→22:28)
[2021-11-27] MEDS ORDERED: 0.9 % Sodium Chloride 1,000 ML IVC ONE (22:25)
[2021-11-27] MEDS ORDERED: diazePAM 10 MG/2 ML SYRINGE IVP ONE (22:25)
[2021-11-27] MEDS ORDERED: Prochlorperazine 10 MG/2 ML VIAL IVP ONE (22:26)
[2021-11-27 22:55] LABS: Basophils # 0.1 K/mcL (0.0-0.2); Basophils % 0.8 %; Eosinophils # 0.5 K/mcL (0.0-0.6); Eosinophils % 3.5 %; Hematocrit 38.2 % (35.3-44.9); Hemoglobin 12.1 g/dL (11.5-15.4); Immature Granulocytes % 0.4 % (0-4); Lymphocytes % 29.9 %; Mean Corpuscular HGB Conc 31.7 g/dL (31.6-35.5); Mean Corpuscular Hemoglobin 26.9 pg (28.0-33.3); Mean Corpuscular Volume 84.9 fL (83.0-100.0); Mean Platelet Volume 11.4 fL (9.4-12.4); Monocytes % 7.1 %; Neutrophils # 8.3 K/mcL (1.6-8.9); Platelet Count 319 K/mcL (140-400); Red Cell Distribution Width 14.9 % (11.5-14.5); Segmented Neutrophils % 58.3 %; White Blood Count 14.2 K/mcL (4.3-11.1)
[2021-11-27 22:58] LABS: Lymphocytes # 4.3 K/mcL (0.6-4.6)
[2021-11-27 23:13] LABS: Bacteria,Urine Few per hpf (None-Few); Bilirubin,Urine Negative (Negative); Blood,Urine Negative (Negative); Clarity,Urine Clear (Clear); Color,Urine Light-Yellow (Yellow); Glucose,Urine (UA) Normal (Normal); Hyaline Casts,Urine Few per lpf (None Seen); Ketones,Urine Negative (Negative); Leukocyte Esterase,Urine Negative (Negative); Mucus,Urine Few per lpf (None-Few); Nitrite,Urine Negative (Negative); PH,Urine 5.5 pH Units (5.0-8.0); Protein,Urine 30 mg/dL (Neg-Trace); RBC,Urine 0-3 per hpf (0-3); Specific Gravity,Urine 1.016 (1.010-1.025); Squamous Epithelial Cell,Urine Few per hpf (None-Few); Urobilinogen,Urine Normal (Normal); WBC,Urine 0-3 per hpf (0-3)
[2021-11-27 23:14] LABS: Reactive Lymphocytes Present (Not Present); Smudge Cells Present (Not Present)
[2021-11-27 23:15] LABS: Albumin 4.1 g/dL (3.5-5.7); Albumin/Globulin Ratio 1.1 (1.1-2.2); Bilirubin,Total 0.5 mg/dL (0.3-1.0); Calcium 9.6 mg/dL (8.6-10.3); Globulin 3.7 g/dL (2.4-3.5); Magnesium 1.9 mg/dL (1.6-2.6); Potassium 3.5 mEq/L (3.5-5.1); Total Protein 7.8 g/dL (6.4-8.9)
[2021-11-27 23:44] LABS: Adenovirus Not Detected (Not Detect); Coronavirus 229E Not Detected (Not Detect); Coronavirus HKU1 Not Detected (Not Detect); Coronavirus NL63 Not Detected (Not Detect); Coronavirus OC43 Not Detected (Not Detect); Human Metapneumovirus Not Detected (Not Detect); Human Rhinovirus/Enterovirus Not Detected (Not Detect); Influenza A Subtype 2009 H1 Not Detected (Not Detect); SARS-CoV-2 Not Detected (Not Detect)
[2021-11-27 23:45] LABS: Bordetella Pertussis Not Detected (Not Detect); Chlamydophila pneumoniae Not Detected (Not Detect); Influenza B Not Detected (Not Detect); Mycoplasma pneumoniae Not Detected (Not Detect); Parainfluenza Virus 1 Not Detected (Not Detect); Parainfluenza Virus 2 Not Detected (Not Detect); Parainfluenza Virus 3 Not Detected (Not Detect); Parainfluenza Virus 4 Not Detected (Not Detect); Respiratory Syncytial Virus Not Detected (Not Detect)
[2021-11-28] MEDS ORDERED: Melatonin 3 MG TABLET PO PRN (02:12)
[2021-11-28] MEDS ORDERED: Naloxone 0.4 MG/ML INJ IVP PRN (02:12)
[2021-11-28] MEDS ORDERED: Ondansetron 4 MG/2 ML VIAL IVP PRN (02:12)
[2021-11-28] MEDS ORDERED: Acetaminophen 325 MG TABLET PO PRN (02:12)
[2021-11-28] MEDS ORDERED: 0.9 % Sodium Chloride 1,000 ML IVC ONE (02:15)
[2021-11-28] MEDS ORDERED: Saliva Stimulant 44.3ml BOTTLE PO PRN (03:59)
[2021-11-28] MEDS ORDERED: Ipratropium/Albuterol Neb 3 ML IH PRN (04:02)
[2021-11-28] MEDS ORDERED: Ringers Solution, Lactated 1,000 ML IVC ONE (04:58)
[2021-11-28] MEDS ORDERED: Dextrose Gel 15 GM/37.5 ML TUBE PO PRN ×2 (04:59)
[2021-11-28] MEDS ORDERED: D5% in Water 1,000 ML IVC PRN (04:59)
[2021-11-28] MEDS ORDERED: *HR* Dextrose 50 % in Water (Syg) 50 ML SYRINGE IVP PRN (04:59)
[2021-11-28] MEDS ORDERED: Vancomycin 1,500 MG/265 ML IV.SOLN IVPB ONE (05:00)
[2021-11-28] MEDS: cefTRIAXone 2,000 MG in 0.9 % Sodium Chloride 20 ML IVPB SCH (06:30)
[2021-11-28] MEDS: *HR* Heparin 5,000 UNIT/ML VIAL SQ SCH ×3 (06:31→22:35)
[2021-11-28] MEDS ORDERED: Ringers Solution, Lactated 1,000 ML ONE (08:38)
[2021-11-28 08:56] LABS: Basophils # 0.1 K/mcL (0.0-0.2); Eosinophils # 0.6 K/mcL (0.0-0.6); Hematocrit 35.3 % (35.3-44.9); Hemoglobin 11.2 g/dL (11.5-15.4); Immature Granulocytes % 0.2 % (0-4); Lymphocytes # 4.3 K/mcL (0.6-4.6); Lymphocytes % 40.7 %; Mean Corpuscular HGB Conc 31.7 g/dL (31.6-35.5); Mean Corpuscular Hemoglobin 27.1 pg (28.0-33.3); Mean Corpuscular Volume 85.5 fL (83.0-100.0); Mean Platelet Volume 11.6 fL (9.4-12.4); Monocytes # 0.7 K/mcL (0.0-1.3); Monocytes % 6.4 %; Neutrophils # 4.8 K/mcL (1.6-8.9); Platelet Count 295 K/mcL (140-400); Red Blood Count 4.13 M/mcL (3.82-4.97); Red Cell Distribution Width 15.1 % (11.5-14.5); Segmented Neutrophils % 45.7 %; White Blood Count 10.5 K/mcL (4.3-11.1)
[2021-11-28] MEDS ORDERED: Pantoprazole 40 MG VIAL IVP SCH (09:00)
[2021-11-28 09:06] LABS: INR 1.2; Prothrombin Time 13.3 Seconds (9.4-12.1)
[2021-11-28 09:09] LABS: Activated Partial Thrombo Time 30.2 Seconds (26.0-36.0)
[2021-11-28 09:16] LABS: Albumin 3.8 g/dL (3.5-5.7); Albumin/Globulin Ratio 1.2 (1.1-2.2); Bilirubin,Total 0.4 mg/dL (0.3-1.0); Calcium 8.5 mg/dL (8.6-10.3); Chol/HDL Ratio 4.3 (0-4.9); Creatine Kinase 1164 Units/L (30-223); Globulin 3.1 g/dL (2.4-3.5); Magnesium 1.9 mg/dL (1.6-2.6); Phosphorous 3.7 mg/dL (2.7-4.5); Potassium 3.4 mEq/L (3.5-5.1); Total Protein 6.9 g/dL (6.4-8.9)
[2021-11-28 10:09] LABS: C-Reactive Protein 20 mg/L (Less than 10)
[2021-11-28] MEDS: 0.9 % Sodium Chloride 1,000 ML IVC SCH ×3 (10:32→20:20)
[2021-11-28] MEDS: Lactobacillus 1 EACH CAP.SPRINK PO SCH ×2 (10:33→20:20)
[2021-11-28] MEDS: Nicotine 21 MG PATCH.TD24 TD SCH (10:33)
[2021-11-28] MEDS: Gabapentin 400 MG CAPSULE PO SCH ×4 (11:05→20:20)
[2021-11-28] MEDS: *HR* HYDROcodone/Acet 5/325 mg TABLET PO PRN ×2 (15:20→22:35)
[2021-11-28] MEDS: Baclofen 10 MG TABLET PO SCH ×2 (15:21→20:20)
[2021-11-28] MEDS: QUEtiapine Fumarate 25 MG TABLET PO SCH (20:21)
[2021-11-29] MEDS: 0.9 % Sodium Chloride 1,000 ML IVC SCH ×3 (03:01→20:03)
[2021-11-29 03:19] LABS: Hemoglobin 10.8 g/dL (11.5-15.4); Mean Corpuscular HGB Conc 31.8 g/dL (31.6-35.5); Mean Corpuscular Hemoglobin 27.1 pg (28.0-33.3); Mean Corpuscular Volume 85.2 fL (83.0-100.0); Mean Platelet Volume 11.9 fL (9.4-12.4); Platelet Count 291 K/mcL (140-400); Red Blood Count 3.99 M/mcL (3.82-4.97); Red Cell Distribution Width 14.7 % (11.5-14.5); White Blood Count 8.8 K/mcL (4.3-11.1)
[2021-11-29 03:40] LABS: BUN/Creatinine Ratio 24 (6-26); Blood Urea Nitrogen 21 mg/dL (6-20); Calcium 8.1 mg/dL (8.6-10.3); Carbon Dioxide 27 mEq/L (23-29); Chloride 106 mEq/L (98-107); Glucose 118 mg/dL (70-105); Osmolality,Calculated 294 (280-300); Potassium 3.3 mEq/L (3.5-5.1); Sodium 140 mEq/L (136-145); eGFR For African Americans > 60 (> 60); eGFR For Non-African Americans > 60 (> 60)
[2021-11-29] MEDS: *HR* Heparin 5,000 UNIT/ML VIAL SQ SCH ×3 (05:45→23:32)
[2021-11-29] MEDS: *HR* HYDROcodone/Acet 5/325 mg TABLET PO PRN ×3 (05:45→23:32)
[2021-11-29] MEDS: cefTRIAXone 2,000 MG in 0.9 % Sodium Chloride 20 ML IVPB SCH (06:10)
[2021-11-29] MEDS: Baclofen 10 MG TABLET PO SCH ×3 (08:00→19:59)
[2021-11-29] MEDS: Lactobacillus 1 EACH CAP.SPRINK PO SCH ×2 (08:00→19:59)
[2021-11-29] MEDS: Gabapentin 400 MG CAPSULE PO SCH ×3 (08:00→19:59)
[2021-11-29] MEDS: Nicotine 21 MG PATCH.TD24 TD SCH (08:01)
[2021-11-29] MEDS ORDERED: BuPROPion XL (24 HR) 150 MG TABLET PO SCH (09:00)
[2021-11-29] MEDS ORDERED: Nitroglycerin 0.4 MG TAB.SUBL SL PRN (09:07)
[2021-11-29] MEDS: QUEtiapine Fumarate 25 MG TABLET PO SCH (19:58)
[2021-11-29] MEDS ORDERED: QUEtiapine Fumarate 100 MG TABLET PO SCH (21:00)
[2021-11-29] MEDS ORDERED: Famotidine 20 MG TABLET PO SCH (21:00)
[2021-11-29] MEDS ORDERED: *HR* LORazepam 0.5 MG TABLET PO ONE (23:43)
[2021-11-30] MEDS: *HR* Heparin 5,000 UNIT/ML VIAL SQ SCH (05:27)
[2021-11-30] MEDS: *HR* HYDROcodone/Acet 5/325 mg TABLET PO PRN (05:32)
[2021-11-30] MEDS: cefTRIAXone 2,000 MG in 0.9 % Sodium Chloride 20 ML IVPB SCH (05:41)
[2021-11-30 06:11] LABS: Basophils # 0.1 K/mcL (0.0-0.2); Basophils % 1.3 %; Eosinophils # 0.6 K/mcL (0.0-0.6); Eosinophils % 6.8 %; Hematocrit 32.2 % (35.3-44.9); Hemoglobin 10.1 g/dL (11.5-15.4); Immature Granulocytes % 0.2 % (0-4); Lymphocytes # 5.2 K/mcL (0.6-4.6); Lymphocytes % 59.3 %; Mean Corpuscular HGB Conc 31.4 g/dL (31.6-35.5); Mean Corpuscular Hemoglobin 26.6 pg (28.0-33.3); Mean Platelet Volume 12.1 fL (9.4-12.4); Monocytes # 0.8 K/mcL (0.0-1.3); Monocytes % 9.4 %; Platelet Count 293 K/mcL (140-400); Red Blood Count 3.79 M/mcL (3.82-4.97); Red Cell Distribution Width 14.6 % (11.5-14.5); White Blood Count 8.7 K/mcL (4.3-11.1)
[2021-11-30 06:34] LABS: Alanine Aminotransferase 21 Units/L (7-52); Albumin 3.3 g/dL (3.5-5.7); Albumin/Globulin Ratio 1.3 (1.1-2.2); Alkaline Phosphatase 81 Units/L (34-104); Aspartate Amino Transferase 24 Units/L (13-39); BUN/Creatinine Ratio 15 (6-26); Bilirubin,Direct 0.1 mg/dL (0.0-0.2); Bilirubin,Indirect 0.2 mg/dL (0.0-1.0); Bilirubin,Total 0.3 mg/dL (0.3-1.0); Blood Urea Nitrogen 11 mg/dL (6-20); Calcium 8.3 mg/dL (8.6-10.3); Carbon Dioxide 28 mEq/L (23-29); Chloride 105 mEq/L (98-107); Creatine Kinase 303 Units/L (30-223); Globulin 2.5 g/dL (2.4-3.5); Glucose 113 mg/dL (70-105); Magnesium 1.4 mg/dL (1.6-2.6); Osmolality,Calculated 294 (280-300); Potassium 3.2 mEq/L (3.5-5.1); Sodium 142 mEq/L (136-145); Total Protein 5.8 g/dL (6.4-8.9); eGFR For African Americans > 60 (> 60); eGFR For Non-African Americans > 60 (> 60)
[2021-11-30 06:43] LABS: % Iron Saturation 32 % (15-50); Ferritin 118 ng/mL (10-120); Iron 102 mcg/dL (50-170); Transferrin 226 mg/dL (203-362)
[2021-11-30 06:47] LABS: Folate 10.8 ng/mL (3.0-16.0)
[2021-11-30 07:20] LABS: Platelet Estimate Normal (Normal)
[2021-11-30 07:41] VITALS: BP 126/69; PULSE 60; TEMP 98.8; O2SAT 91
[2021-11-30] MEDS ORDERED: Aspirin Enteric Coated 81 MG Tablet PO SCH (09:00)
[2021-11-30] MEDS ORDERED: Nystatin POWDER 30 GM BOTTLE TP PRN (09:20)
[2021-11-30] MEDS: Baclofen 10 MG TABLET PO SCH (09:22)
[2021-11-30] MEDS: Lactobacillus 1 EACH CAP.SPRINK PO SCH (09:23)
[2021-11-30] MEDS: Nicotine 21 MG PATCH.TD24 TD SCH (09:23)
[2021-11-30] MEDS: Gabapentin 400 MG CAPSULE PO SCH (09:23)
[2021-11-30] MEDS ORDERED: Cyanocobalamin (B-12) 1,000 MCG/ML VIAL SQ STA (11:12)
== END 2021-11-30 13:10 | disposition home or self-care (01) ==
LOC: 2ANU 20:44 → EMEROOARM 20:44 → SUATTDRO 11-28 02:13 → 2ANU 11-28 02:40
PROVIDERS: ADMIT Internal Medicine; ATTEND Pharmacist